=== PATIENT | female | born 1935 | race Caucasian/White ===

== ENCOUNTER 2019-05-15 11:26 | Inpatient (IN) | payer MEDICARE ==
[~2019-05-15] VITALS: Ht 170.2 cm; Wt 78.6 kg
--- NOTE | ~2019-05-15 | OP ---
PATIENT NAME: GERMAN GUIDRY MEDICAL RECORD: [id number] :37 LOCATION:D.M2 D.2121 ADMISSION DATE:05/15/19 SURGEON: JUAN RAMON HAMILTON MD DATE OF OPERATION: 05/18/2019 PROCEDURE: DC cardioversion. INDICATION: Atrial fibrillation. PROCEDURE IN DETAIL: IV conscious sedation was per anesthesia. Continuous heart rate, O2 saturation, blood pressure monitoring all undertaken, all of which remains stable. She received 1 shock at 275 joules restoring sinus rhythm. OVERALL IMPRESSION: Successful DC cardioversion from atrial fibrillation to sinus rhythm. TRANSINT:[id number] Voice Confirmation ID: [id number] DOCUMENT ID: [id number] JUAN RAMON HAMILTON MD CC: [id number] DICTATION DATE: 05/18/19 130 HOME SPECIALIST: 05/18/191957 DIS IN 05/18/19 [facility] [address] [place] [address]
--- NOTE | ~2019-05-15 | HEMODYNAMI ---
PATIENT:GERMAN GUIDRY MEDICAL RECORD: [id number] : 37 LOCATION:[place] [address] ADMISSION DATE: 05/15/19 Generatedon:05/18/201913:09 Patient name: GEMRAN GUIDRY Patient #: [id number] SSN: : 1935 Date of study: 05/18/2019 Page: Of Hemodynamic Procedure Report Patient Data Patient Demographics Procedure consent was obtained First Name: GERMAN Gender: Female Last Name: CHAO : 1935 Patient #: [id number] Age: 84 year(s) Race: Unknown Additional ID: [id number] Contact details [address]: [address] [place] [address] State: [place] City: [place] Zip code: [address] Past Medical History Allergies Allergen Reaction Date Comments Reported Other allergy 05/18/2019 lisinopril Admission Admission Data Admission Date: 05/15/2019 Admission Time: 12:37 Room #: [facility] Procedure Procedure Types Cath Procedure Diagnostic Procedure Cardioversion External Procedure Description Procedure Date Procedure Date: 05/18/2019 Procedure Start Time: 12:59 Procedure End Time: 13:08 Procedure Staff Name Function Satish Mitchell MD Performing Physician Ruth Mcmillan RT Monitor Caitlin Paz RN Nurse Dom Aviles [employer] Additional personnel Pravin Roper [employer] Additional personnel Procedure Data Procedure Complications No complications Procedure Medications Medication Administration Route Dosage 0.9% NaCl I.V. 100 ml/hr Oxygen etCO2 Nasal cannula 2 l/min Refer to Anesthesia Notes for Sedation Medications Hemodynamics Rest Heart Rate: 66 (bpm) Snapshots Pre Cath Intra NCS Post Cath Vital Signs Time Heart Resp SPO2 etCO2 NIBP (mmHg) Rhythm Pain Sedation Rate (ipm) (%) (mmHg) Status Level (bpm) 12:51:46 71 22 96 36.5 123/72(97) A-Fib 0 (11) 10(A) , No pain 12:56:04 58 15 95 41 124/67(104) A-Fib 0 (11) 10(A) , No pain 13:00:20 108 22 96 39.5 123/71(97) A-Fib 0 (11) 5(A) , No pain 13:03:22 68 14 97 23.1 112/67(92) 1 0 (11) 10(A) degree , No AV pain Block 13:07:39 66 14 89 17.1 100/55(75) 1 0 (11) 10(A) degree , No AV pain Block Medications Time Medication Route Dose Verified Delivered Reason Notes Effective ness by by 12:50:51 0.9% NaCl I.V. 100 Satish Tucker used for ml/hr Paula Paz billet examiner 12:50:59 Oxygen etCO2 2 Satish Tucker used for Nasal l/min Paula Paz procedure cannula RN 12:51:04 Refer to Satish Covarrubias for Anesthesia Paula Mitchell MD sedation Notes for Sedation Medications Procedure Log Time Note 12:45:17 Diagnostic Cath Status : Elective 12:45:55 Ruth Mcmillan RT(R) sent for patient. Start room use. 12:45:56 Time tracking: Regular hours (M-F 7:00 - 5:00) 12:46:01 Plan of Care:Hemodynamics will remain stable., Cardiac rhythm will remain stable., Comfort level will be maintained., Respiratory function will remain adequate., Patient/ family verbilizes understanding of procedure., Procedure tolerated without complication., Recovers from procedure without complications.. 12:46:19 Patient received from Med II to CCL 1 Alert and oriented. Tansferred to table in Supine position. 12:46:21 Signed procedure consent form obtained from patient. 12:46:22 Warm blankets applied, and rhonda hugger turned on for patient comfort. 12:46:22 Correct patient and procedure confirmed by team. 12:46:23 ECG and BP/O2 sat monitors applied to patient. 12:50:40 Vital chart was started 12:50:51 0.9% NaCl 100 ml/hr I.V. was administered by Caitlin Paz RN; used for procedure; Verbal order read back and verified. 12:50:59 Oxygen 2 l/min etCO2 Nasal cannula was administered by Caitlin Paz RN; used for procedure; Verbal order read back and verified. 12:51:04 Refer to Anesthesia Notes for Sedation Medications was administered by Satish Mitchell MD; for sedation; Verbal order read back and verified. 12:54:58 Baseline sample Acquired. 12:55:11 Rhythm: atrial flutter 12:55:13 Full Disclosure recording started 12:55:26 H&P Date Dictated: 05/18/2019 Within 30 days and on chart., H&P Addendum completed by physician on day of procedure. (MUST COMPLETE FOR ALL OUTPATIENTS). 12:55:28 Pre-procedure instructions explained to patient. 12:55:31 Family in patients room. 12:55:35 Family in waiting room. 12:55:37 Patient NPO since Midnight. 12:55:54 Patient allergic to Other allergylisinopril 12:55:59 Is the patient allergic to Iodine/contrast media? No. 12:56:01 Is patient on blood thinner?Yes 12:56:08 ACC The patient was administered the following blood thiners within the last 24 hours: Eliquis 12:56:10 Patient diabetic? No. 12:56:16 Snore? Yes 12:56:17 Sleep apnea? Yes 12:56:22 Dentures? No ? 12:56:40 IV patent on arrival in right forearm with 0.9% NaCl at KVO. 12:56:48 Lab results completed and on chart. 12:56:53 Alarms reviewed by R. N. 12:56:53 Sharps counted by scrub and verified by R.N. 12:59:08 Physician arrived 12:59:09 --------ALL STOP TIME OUT------ 12:59:10 Final Timeout: patient, procedure, and site verified with staff and physician. All members of the team are in agreement. 12:59:16 Fire Safety Assessment: A--An alcohol-based skin anteseptic being used preoperatively., C--Open oxygen or nitrous oxide is being used., D--An ESU, laser, or fiber-optic light is being used. 12:59:20 Physical assessment completed. ASA score P 2 - A patient with mild systemic disease as per Satish Mitchell MD. 12:59:27 Sedation plan: TIVA Medication:Propofol 12:59:32 Dom Aviles CRNA present and monitoring patient for TIVA. 12:59:43 Procedure started. 12:59:45 Quick combo pads placed on patients chest and back. 12:59:54 Quick Combo opened to sterile field. 13:00:57 Defibrillator synced and charged to 275 Joules. 13:00:59 Shock delivered. 13:01:54 Patient cardioverted to 1st degree heart block. 13:02:26 Procedure ended.(Physican Out) 13:02:42 Post-procedure physical assessment completed. ASA score P 2 - A patient with mild systemic disease as per Satish Mitchell MD. 13:02:48 Post procedure rhythm: sinus rhythm , 1st degree heart block 13:02:52 Post procedure instruction explained to patient.Patient verbalizes understanding. 13:03:19 Procedure type changed to Cath procedure, Diagnostic procedure, Cardioversion External 13:03:39 Procedure and supply charges have been captured, reviewed, submitted and are correct. 13:03:53 Procedure Complication : No complications 13:08:09 Vital chart was stopped 13:08:12 Operative report dictated upon procedure completion. 13:08:12 See physician's report for complete and final results. 13:08:21 Report given to Med II. 13:08:23 Patient transfered to Med II with Bed. 13:08:25 Procedure ended. 13:08:25 Full Disclosure recording stopped 13:08:27 End room use (Document Last) 13:08:45 End room use (Document Last) 13:09:16 End room use (Document Last) Device Usage Item Manufacture Quantity Catalog Hospital Part Current Minimal Lot# / Name Number Charge Number Stock Stock Lexxi al# Code Quick [employer] 1 [id number] Combo Signature Audit [place] Stage Time Signature Unsigned Intra-Procedure 05/18/2019 Ruth Mcmillan 1:08:46 PM RT(R) Intra-Procedure 05/18/2019 Caitlin Paz 1:09:16 PM RN Intra-Procedure 05/18/2019 Satish Mitchell 1:09:33 PM [id number] [place] [address]
[2019-05-15] MEDS ORDERED: MULTAQ400 MG PO (11:41)
[2019-05-15] MEDS ORDERED: HYZAAR 50-12.51 TAB PO (11:42)
[2019-05-15 12:00] VITALS: BP 134/90
[2019-05-15 12:23] LABS: CALC OSMOLALITY 279 mosm/kg (275-300); CALCIUM 8.4 mg/dL (8.5-10.1); CARBON DIOXIDE 31.2 mmol/L (21.0-32.0); CHLORIDE - SERUM 104 mmol/L (98-107); GLUCOSE 103 mg/dL (74-106); POTASSIUM - SERUM 4.7 mmol/L (3.5-5.1); SODIUM 138 mmol/L (136-145); UREA NITROGEN 23 mg/dL (7-18); eGFR NON AFRICAN AMERICAN 56 mL/min (90-120)
[2019-05-15 12:30] VITALS: BP 127/97
[2019-05-15 12:31] LABS: APTT 28.2 SECONDS (22.8-39.4); INR 1.16 (0.85-1.17); PROTIME 14.3 SECONDS (11.6-15.0)
[2019-05-15 12:40] LABS: ALBUMIN 2.7 g/dL (3.4-5.0); ALKALINE PHOSPHATASE 82 U/L (46-116); ALT (SGPT) 29 U/L (10-68); BILIRUBIN - TOTAL 1.04 mg/dL (0.2-1.3); CKMB 1.7 U/L (0.0-3.6); CREATINE KINASE 73 UL (21-215); MAGNESIUM - SERUM 2.1 mg/dL (1.8-2.4); PROTEIN - SERUM 6.2 g/dL (6.4-8.2)
[2019-05-15 12:41] LABS: TROPONIN-I < 0.017 ng/mL (0.000-0.060)
[2019-05-15 12:44] LABS: BASOPHILS 0.3 % (0-2); EOSINOPHILS 0.9 % (0-7); HEMATOCRIT 39.6 % (36.0-48.0); HEMOGLOBIN 13.1 g/dL (12-16); IMMATURE GRANULOCYTES 0.2 % (0-5); LYMPHOCYTES 11.2 % (15-50); MCH 31.3 pg (26.0-34.0); MCHC 33.1 g/dL (31.0-37.0); MCV 94.5 fL (80.0-100.0); MEAN PLATELET VOLUME 8.5 fL (7.4-10.4); MONOCYTES 13.1 % (2-11); NEUTROPHILS 74.3 % (40-80); PLATELET COUNT 234 10x3/uL (130-400); RBC 4.19 10x6/uL (4.00-5.40); RDW 13.4 % (11.5-14.5); WBC 6.3 10x3/uL (4.8-10.8)
[2019-05-15 13:00] VITALS: BP 123/81
--- NOTE | 2019-05-15 13:15 | MORECARE ---
CASE MANAGEMENT DISCHARGE SUMMARY PATIENT: GERMAN STARK UNIT: [id number] ADM DATE: 05/15/19 AGE: 84 : 36 SEX: F ROOM/BED: D.1856 AUTHOR: NICOLETTE TALLEY PHYSICIAN: REFERRING PHYSICIAN: ÁLVARO BLACKMON MD DATE OF SERVICE: 05/15/19 Discharge Plan Patient Name: GERMAN STARK Facility: [facility]:[place] : 1935 Planned Disposition: Anticipated Discharge Date: Discharge Date: Expected LOS: Initial Reviewer: [email or web address] Initial Review Date: 05/15/2019 Generated: 05/15/19 2:15 pm DCP- Discharge Planning Updated by [email or web address]: Bailey Chacon on 05/15/19 12:[address] CM met with patient to discuss initial discharge planning. Patient is in agreement to proceed with assessment. Verified patient's address and telephone number. Patient is alert/oriented. Stairs/steps: None. PCP: Dr. Aldana, [facility]. Pharmacy: [facility]. Patient states they have been able to obtain all of their prescribed medications. Patient lives with , Celso Stark. HHS: None. DME: None. Patient gives permission to speak with family members/care givers. Emergency contact: Celso Stark (spouse) [phone]. Patient is Independent with all ADL's, medication management. CM discussed the availability of HH, Rehab, DME services. Patient denies the need for additional services at this time and feels safe returning to previous environment. Patient denies being hospitalized within the past 30 days. Patient denies the use of community resources COOKING CHEF. Patient voices no needs at this time. Transportation at time of discharge: , Jus. Patient Name: GERMAN STARK Page [id number] at 1315 All edits/amendments must be made on the electronic document DICTATION DATE: 05/15/19 1314 ALARM MECHANIC: ANAYELI 05/15/19 1314 RPT#: [id number] DC DATE: STATUS: ADM IN [facility] [address] [id number] END OF REPORT
--- NOTE | 2019-05-15 13:21 | MORECARE ---
CASE MANAGEMENT DISCHARGE SUMMARY PATIENT: GERMAN STARK UNIT: [id number] ADM DATE: 05/15/19 AGE: 84 : 36 SEX: F ROOM/BED: D.5335 AUTHOR: MAYANK,DOC PHYSICIAN: REFERRING PHYSICIAN: ÁLVARO BLACKMON MD DATE OF SERVICE: 05/15/19 Discharge Plan Patient Name: GERMAN STARK Facility: [facility]:[place] : 1935 Planned Disposition: Anticipated Discharge Date: Discharge Date: Expected LOS: Initial Reviewer: [email or web address] Initial Review Date: 05/15/2019 Generated: 05/15/19 2:21 pm DCP- Discharge Planning Updated by [email or web address]: Bailey Chacon on 05/15/19 12:[address] CM met with patient to discuss initial discharge planning. Patient is in agreement to proceed with assessment. Verified patient's address and telephone number. Patient is alert/oriented. Stairs/steps: None. PCP: Dr. Jovan [facility]. Pharmacy: [facility]. Patient states they have been able to obtain all of their prescribed medications. Patient lives with , Celso Stark. HHS: None. DME: None. Patient gives permission to speak with family members/care givers. Emergency contact: Celso Stark (spouse) [phone]. Patient is Independent with all ADL's, medication management. CM discussed the availability of HH, Rehab, DME services. Patient denies the need for additional services at this time and feels safe returning to previous environment. Patient denies being hospitalized within the past 30 days. Patient denies the use of community resources TIER OVER. Patient voices no needs at this time. Transportation at time of discharge: , Jus. DCPIA - Discharge Planning Initial Assessment Updated by [email or web address]: Bailey Chacon on 05/15/19 1:20 pm * Is the patient Alert and Oriented? Yes * How many steps to enter\exit or inside your home? None * PCP Dr. Jovan [facility] * [facility]acy [facility] * Preadmission Environment Home with Family * ADLs Independent * Equipment None * List name and contact numbers for known caregivers / representatives who currently or will assist patient after discharge: Celso Stark #[phone] * Verbal permission to speak to the caregivers and representatives has been obtained from the patient. Yes * Community resources currently utilized None * Please name any agencies selected above. NA * Additional services required to return to the preadmission environment? No * Can the patient safely return to the preadmission environment? Yes * Has this patient been hospitalized within the prior 30 days at any hospital? No Last DP export: 05/15/19 12:15 pm Patient Name: GERMAN STARK Page [phone] at 1321 All edits/amendments must be made on the electronic document DICTATION DATE: 05/15/19 1321 PHYSICAL THERAPY ASSISTANT INSTRUCTOR: ANAYELI 05/15/19 1321 RPT#: [id number] DC DATE: STATUS: ADM IN [facility] [address] [place] [address] END OF REPORT
--- NOTE | 2019-05-15 13:43 | NUR ---
PT IV BLEEDING. CHECKED SITE. IV INFUSING WITHOUT S/S OF INFILTRATION. RESTARTED IV. NO S/S OF INFILTRATION.
--- NOTE | 2019-05-15 14:33 | NUR ---
RECIVED FROM ER PER BED. TO ROOM 2121. ADMIT ASSESSMENT PER RN
[2019-05-15 15:54] VITALS: BP 114/70; Ht 170.2 cm; Wt 78.6 kg
--- NOTE | 2019-05-15 16:00 | NUR ---
ASSESSMENTCOMPLETE PT AAOX4 RESP SL SOB NOTED SKIN W/D COLOR WNL TELEMETRY UNCAF RATE 115 PT DENIES ANY PAIN AT THIS TIME NAD NOTED
[2019-05-15 20:00] VITALS: BP 116/59
[2019-05-16] VITALS (7 sets, daily range): BP systolic 111–138; BP diastolic 65–94
[2019-05-16 01:01] LABS: APPEARANCE CLEAR (CLEAR); BILIRUBIN NEGATIVE (NEGATIVE); COLOR YELLOW (YELLOW); GLUCOSE NEGATIVE (NEGATIVE); KETONE NEGATIVE (NEGATIVE); NITRITE POSITIVE (NEGATIVE); PROTEIN TRACE mg/dL (NEGATIVE); SPECIFIC GRAVITY 1.015 (1.005-1.020); UROBILINOGEN NORMAL (NORMAL)
[2019-05-16 01:02] LABS: BACTERIA MODERATE /hpf (NEGATIVE); EPITHELIAL CELLS 0-5 /hpf (0-5); RED CELLS - URINE 0-5 /hpf (0-5); WHITE CELLS - URINE 0-5 /hpf (NEGATIVE)
[2019-05-16 07:21] LABS: BASOPHILS 0.3 % (0-2); EOSINOPHILS 2.2 % (0-7); HEMATOCRIT 38.2 % (36.0-48.0); HEMOGLOBIN 12.5 g/dL (12-16); IMMATURE GRANULOCYTES 0.2 % (0-5); LYMPHOCYTES 17.7 % (15-50); MCH 30.8 pg (26.0-34.0); MCHC 32.7 g/dL (31.0-37.0); MCV 94.1 fL (80.0-100.0); MEAN PLATELET VOLUME 8.4 fL (7.4-10.4); MONOCYTES 13.1 % (2-11); NEUTROPHILS 66.5 % (40-80); PLATELET COUNT 231 10x3/uL (130-400); RBC 4.06 10x6/uL (4.00-5.40); RDW 13.5 % (11.5-14.5); WBC 5.9 10x3/uL (4.8-10.8)
--- NOTE | 2019-05-16 07:32 | NUR ---
REPORT RECEIVED. WILL CONTINUE WITH POC. PT CURRENTLY LYING SEMI FOWLERS. CALL LIGHT W/I REACH. PT IS AAO AND UP AD BRITTON. RR EVEN AND UNLABORED ON 2L 02. CARDIZEM INFUSING @10ML/HR VIA L.AC PIV. R.WRIST PIV SALINE LOCKED. NO S/S OF DISTRESS NOTED. PT PLEASANT AND DENIES ANY NEEDS THIS AM. WILL CTM.
[2019-05-16 07:44] LABS: ALBUMIN 2.5 g/dL (3.4-5.0); ANION GAP 12.2 mmol/L (8-16); BILIRUBIN - TOTAL 0.82 mg/dL (0.2-1.3); CARBON DIOXIDE 30.4 mmol/L (21.0-32.0); CREATININE - SERUM 1.1 mg/dL (0.6-1.3); MAGNESIUM - SERUM 1.8 mg/dL (1.8-2.4); PHOSPHOROUS 3.4 mg/dL (2.5-4.9); POTASSIUM - SERUM 3.6 mmol/L (3.5-5.1)
--- NOTE | 2019-05-16 14:58 | NUR ---
I have reviewed this patient and I concur with the Shift Assessment completed by the Licensed Practical Nurse today this shift.
--- NOTE | 2019-05-16 17:15 | NUR ---
CARDIZEM THAT WAS INFUSING TO LEFT AC PIV INFILTRATED. REMOVED PIV WITH CATHETER TIP FULLY INTACT. MOVED CARDIZEM DRIP TO THE RIGHT HAND PIV. NO S/S OF INFILTRATION PRESENT. WILL CTM. CARDIZEM @10ML/HR
--- NOTE | 2019-05-16 19:50 | NUR ---
PT UP TO SHOWER
--- NOTE | 2019-05-16 21:15 | NUR ---
IV TO RIGHT WRIST RED AND SWOLLEN. IV RESITED TO RIGHT UPPER FOREARM, 22 GUAGE, PT TOLERATED WELL. HS MEDS GIVEN WITH FRESH ICE WATER.
[2019-05-17 05:35] LABS: BASOPHILS 0.1 % (0-2); EOSINOPHILS 1.1 % (0-7); HEMATOCRIT 39.3 % (36.0-48.0); HEMOGLOBIN 12.9 g/dL (12-16); IMMATURE GRANULOCYTES 0.1 % (0-5); LYMPHOCYTES 16.8 % (15-50); MCH 30.9 pg (26.0-34.0); MCHC 32.8 g/dL (31.0-37.0); MEAN PLATELET VOLUME 8.6 fL (7.4-10.4); MONOCYTES 10.7 % (2-11); NEUTROPHILS 71.2 % (40-80); PLATELET COUNT 253 10x3/uL (130-400); RBC 4.18 10x6/uL (4.00-5.40); RDW 13.4 % (11.5-14.5)
[2019-05-17 06:02] LABS: WBC 8.1 10x3/uL (4.8-10.8)
[2019-05-17 06:14] LABS: ANION GAP 11.6 mmol/L (8-16); CALCIUM 8.2 mg/dL (8.5-10.1); CARBON DIOXIDE 30.3 mmol/L (21.0-32.0); PHOSPHOROUS 3.1 mg/dL (2.5-4.9); POTASSIUM - SERUM 3.9 mmol/L (3.5-5.1)
--- NOTE | 2019-05-17 06:20 | NUR ---
I have reviewed this patient and I concur with the Shift Assessment completed by the Licensed Practical Nurse today this shift.
--- NOTE | 2019-05-17 07:20 | NUR ---
ASSESSMENT DONE. DENIES NEEDS
[2019-05-17 10:55] VITALS: BP 110/86
--- NOTE | 2019-05-17 14:04 | EC ---
PATIENT:GERMAN GUIDRY DATE OF SERVICE: 05/15/19 SEX: F MEDICAL RECORD: [id number] DATE OF : 37 LOCATION:D.M2 D.212 AGE OF PATIENT: 84 ADMISSION DATE: 05/15/19 REFERRING PHYSICIAN: INTERPRETING PHYSICIAN: JUAN RAMON MITCHELL MD ECHOCARDIOGRAM REPORT ECHO CHARGES 4 ECHO COMPLETE Date: 05/16/19 CLINICAL DIAGNOSIS: SOB/ATRIAL FIB ECHOCARDIOGRAPHIC MEASUREMENTS (adult normal given) AC root (d.<3.7cm) 3.5 cm LV Septum d (<1.2 cm> 1.2 cm Valve Excursion 2.1 cm LV Septum (systole) 1.5 cm Left Atria (s.<4.0cm> 4.2 cm LVPW d(<1.2cm) 1.4 cm RV (d.<2.3cm) 4.8 cm LVPW (sytole) 1.6 cm LV diastole(<5.6CM) 5.1 cm MV E-F(>70mm/sec) cm LV systole 3.7 cm LVOT Diameter 2.0 cm MV exc.(>10mm) 1.4 cm Est.ejection fraction (50-75%) % DOPPLER: LVIT cm/sec A 96.0 cm/sec E cm/sec LA cm/sec RVSP 37 mmHg LVOT 89 cm/sec AOP1/2T m/s Asc. Ao 136 cm/sec RVOT 71 cm/sec RA cm/sec PA 108 cm/sec AV Gradient Peak 7.42 mmHg AV Mean 4.56 mmHg AV Area 1.5 cm MV Gradient Peak 4.97 mmHg MV Mean 2.49 mmHg MV Area cm COMMENTS: Tobacco Classer: Anali GRAY Embroidery Operator: 1 Dr. Mitchell TAPE# PACS Pericardial Effusion Y DATE OF SERVICE: PROCEDURE: 1. Left ventricular chamber size is within normal limits. Left ventricular systolic function is normal. Overall ejection fraction estimated at 55%. 2. Left atrium is enlarged at 4.2 cm. Right atrium and right ventricular chamber sizes are moderately dilated. 3. Valvular structures have normal structure and motion. 4. Doppler interrogation reveals [id number] mitral regurgitation, mild to moderate tricuspid regurgitation, no other valvular insufficiency or stenosis. ECHOCARDIOGRAM REPORT [id number] GERMAN GUIDRY Pulmonary systolic pressure estimated at 37 mmHg. 5. Pericardial effusion is present, small not hemodynamically significant. No evidence of left ventricular thrombus. TRANSINT:[id number] Voice Confirmation ID: [id number] DOCUMENT ID: [id number] JUAN RAMON MITCHELL MD at 1404 CC: [id number] DICTATION DATE: 05/16/19 1624 GLASS NOVELTY MAKER: 05/17/19 0233 ADM IN [id number] [place] [address]
--- NOTE | 2019-05-17 14:04 | CN ---
PATIENT NAME:GERMAN STARK MEDICAL RECORD: [id number] : 37 LOCATION:D. D.2121 ADMIT DATE: 05/15/19 ACCOUNT: [id number] CONSULTING PHYSICIAN: JUAN RAMON HAMILTON MD REFERRING PHYSICIAN: ÁLVARO BLACKMON MD DATE OF CONSULTATION: 05/15/2019 DIAGNOSES: 1. Atrial fibrillation with rapid ventricular response. 2. Pneumonia. 3. Shortness of breath. 4. Hypertension. 5. Angina. 6. Lower extremity edema. HISTORY OF PRESENT ILLNESS: Mrs. Stark presents with shortness of breath for the lower extremity edema and chest discomfort that has been worsening for the past week. She does have a history of atrial fibrillation for which she is on Multaq. She was previously in sinus rhythm now in atrial fibrillation, heart rates in the 30s. Chest x-ray is compatible with pneumonia, right lower lobe, as well as pulmonary edema. PHYSICAL EXAMINATION: CONSTITUTIONAL/GENERAL APPEARANCE: Well nourished, well developed, appears stated age. EYES: Lids and conjunctivae noninjected. No discharge. No pallor. ENT: Lips within normal limit. No cyanosis. No pallor. NECK: Carotid arteries, bilateral normal upstroke. No bruits. No thrills. No jugular venous pressure or distention. CERVICAL LYMPH NODES: Nontender. Nonenlarged. THYROID: Not enlarged. No nodules. CARDIOVASCULAR: Precordial exam, nondisplaced. No heaves or pericardial thrills. Rate and rhythm, regular. Heart sounds, normal S1, normal S2. No S3, no gallop, no rub. Systolic murmur, not heard. Diastolic murmur, not heard. RESPIRATORY: Respiratory effort, unlabored. Normal curvature. No thoracic deformity. No chest wall tenderness. Percussion, resonant. Auscultation, clear. No wheezes, no rales, no rhonchi. ABDOMEN: Soft, nondistended, nontender. No abdominal pain, no vomiting and normal appetite. MUSCULOSKELETAL: No joint tenderness, normal gait, normal tone. SKIN: Warm and dry. OVERALL IMPRESSION: 1. Atrial fibrillation. At this time, we will continue her Multaq. Start her on anticoagulation and rate control with Cardizem. 2. Chest pain compatible with angina. We will get serial enzymes. EKG is with no acute ST-T abnormalities. 3. Pneumonia. This will be treated per medicine with IV antibiotics. TRANSINT:[id number] Voice Confirmation ID: [id number] DOCUMENT ID: [id number] CONSULT REPORT [id number] GERMAN STARK JEFFREY MD at 1404 CC: [id number] DICTATION DATE: 05/15/19 1213 CAKE STRIPPER: 05/15/19 1723 ADM IN [id number] [place] [address]
[2019-05-17 14:09] VITALS: BP 96/58
--- NOTE | 2019-05-17 14:40 | NUR ---
I have reviewed this patient and I concur with the Shift Assessment completed by the Licensed Practical Nurse today this shift.
[2019-05-17 17:24] VITALS: BP 117/61
[2019-05-17 20:30] VITALS: BP 119/44
[2019-05-18] VITALS: BP 117/61
[2019-05-18 04:30] VITALS: BP 130/69
--- NOTE | 2019-05-18 05:11 | NUR ---
I have reviewed this patient and I concur with the Shift Assessment completed by the Licensed Practical Nurse today this shift.
[2019-05-18 06:01] LABS: BASOPHILS 0 % (0-2); EOSINOPHILS 0.5 % (0-7); HEMOGLOBIN 12.1 g/dL (12-16); IMMATURE GRANULOCYTES 0.2 % (0-5); LYMPHOCYTES 16.4 % (15-50); MCH 30.7 pg (26.0-34.0); MCHC 32.7 g/dL (31.0-37.0); MCV 93.9 fL (80.0-100.0); MEAN PLATELET VOLUME 8.5 fL (7.4-10.4); MONOCYTES 9.5 % (2-11); NEUTROPHILS 73.4 % (40-80); PLATELET COUNT 248 10x3/uL (130-400); RBC 3.94 10x6/uL (4.00-5.40); WBC 6.6 10x3/uL (4.8-10.8)
[2019-05-18 06:26] LABS: ANION GAP 7.7 mmol/L (8-16); CALCIUM 7.9 mg/dL (8.5-10.1); CARBON DIOXIDE 35.1 mmol/L (21.0-32.0); CREATININE - SERUM 1.1 mg/dL (0.6-1.3); MAGNESIUM - SERUM 1.9 mg/dL (1.8-2.4); PHOSPHOROUS 3.6 mg/dL (2.5-4.9); POTASSIUM - SERUM 3.8 mmol/L (3.5-5.1)
--- NOTE | 2019-05-18 08:04 | NUR ---
ASSESSMENT DONE. DENIES NEEDS
[2019-05-18 08:48] VITALS: BP 120/69
--- NOTE | 2019-05-18 09:19 | NUR ---
I have reviewed this patient and I concur with the Shift Assessment completed by the Licensed Practical Nurse today this shift.
[2019-05-18 12:26] VITALS: BP 130/80
[2019-05-18] MEDS ORDERED: METOPROLOL TART50 MG PO (15:49)
[2019-05-18] MEDS ORDERED: ELIQUIS5 MG PO (15:51)
--- NOTE | 2019-05-18 16:33 | NUR ---
DC GIVEN TO PT
--- NOTE | 2019-05-18 17:16 | NUR ---
DC HOME PER PERSONAL CAR
--- NOTE | 2019-05-18 17:24 | MORECARE ---
CASE MANAGEMENT DISCHARGE SUMMARY PATIENT: GERMAN STARK UNIT: [id number] ADM DATE: 05/15/19 AGE: 84 : 36 SEX: F ROOM/BED: D.9680 AUTHOR: MAYANK,DOC PHYSICIAN: REFERRING PHYSICIAN: ÁLVARO BLACKMON MD DATE OF SERVICE: 05/18/19 Discharge Plan Patient Name: GERMAN STARK Facility: [facility]:[place] : 1935 Planned Disposition: Home Anticipated Discharge Date: 05/18/19 Discharge Date: 05/18/2019 Expected LOS: 3 Initial Reviewer: [email or web address] Initial Review Date: 05/15/2019 Generated: 05/18/19 6:24 pm Comments DCP- Discharge Planning Updated by [email or web address]: Raghav Palomo on 05/18/19 4:[address] Patient Name: GERMAN STARK Encounter No: [id number] : 1935 Primary Insurance: [facility] [employer] Anticipated DC Date: 05-18-2019 Planned Disposition: Home DCP follow-up note: CM MET WITH PT IN ROOM TO DISCUSS DISCHARGE NEEDS AND PLANNING. CM DISCUSSED AVAILABILITY OF HOME HEALTH, REHAB SERVICES AND MEDICAL EQUIPMENT. PT DENIES DISCHARGE NEEDS. SPOUSE TO TRANSPORT HOME AT DISCHARGE. IMPORTANT MESSAGE FROM MEDICARE PROVIDED AND EXPLAINED. HARMAN Shrestha DCP- Discharge Planning Updated by [email or web address]: Bailey Chacon on 05/15/19 12:[address] CM met with patient to discuss initial discharge planning. Patient is in agreement to proceed with assessment. Verified patient's address and telephone number. Patient is alert/oriented. Stairs/steps: None. PCP: Dr. Aldana, [facility]. [facility] Patient states they have been able to obtain all of their prescribed medications. Patient lives with , Celso Stark. HHS: None. DME: None. Patient gives permission to speak with family members/care givers. Emergency contact: Celso Stark (spouse) [phone]. Patient is Independent with all ADL's, medication management. CM discussed the availability of HH, Rehab, DME services. Patient denies the need for additional services at this time and feels safe returning to previous environment. Patient denies being hospitalized within the past 30 days. Patient denies the use of community resources [employer]. Patient voices no needs at this time. Transportation at time of discharge: , Jus. DCPIA - Discharge Planning Initial Assessment Updated by [email or web address]: Bailey Chacon on 05/15/19 1:20 pm * Is the patient Alert and Oriented? Yes * How many steps to enter\exit or inside your home? None * PCP Dr. Jovan [facility] * [facility]acy [facility] * Preadmission Environment Home with Family * ADLs Independent * Equipment None * List name and contact numbers for known caregivers / representatives who currently or will assist patient after discharge: Celso Stark #[phone] * Verbal permission to speak to the caregivers and representatives has been obtained from the patient. Yes * Community resources currently utilized None * Please name any agencies selected above. NA * Additional services required to return to the preadmission environment? No * Can the patient safely return to the preadmission environment? Yes * Has this patient been hospitalized within the prior 30 days at any hospital? No Coverage Notice Reviewer: [id number] Yonathan Palomo Notice Issued Date-Time: 05/18/2019 16:20 Notice Type: IM Discharge Notice Notice Delivered To: Patient Relationship to Patient: Flotation Tank Operator Name: Delivery Method: HAND - Hand Delivered Nydia Days: Prior Verbal Notification: Recipient Understood Notice: Yes Recipient Signature: Yes Med Rec Note Co-signed by Attending: Coverage Notice Comment: Last DP export: 05/15/19 12:21 pm Patient Name: GERMAN STARK Page 31513 at 1724 All edits/amendments must be made on the electronic document DICTATION DATE: 05/18/191723 PRODUCTION SUPPORT SUPERVISOR: ANAYELI 05/18/191723 RPT#: [id number] DC DATE:05/18/19 STATUS: DIS IN [facility] [address] [place] [address] END OF REPORT
== END 2019-05-18 17:16 | disposition home or self-care (01) | DRG 291 ==
LOC: D.ER 11:26 → D.M2 12:37 → D.SDCHOLD 05-17 14:50 → D.M2 05-18 17:16
PROVIDERS: Family Medicine; ADMIT Family Medicine; ATTEND Family Medicine
DX: I11.0 Hypertensive heart disease with heart failure (principal); J18.9 Pneumonia, unspecified organism; I50.21 Acute systolic (congestive) heart failure; I48.20 Chronic atrial fibrillation, unspecified; I08.1 Rheumatic disorders of both mitral and tricuspid valves

== ENCOUNTER 2019-06-03 20:33 | Inpatient (IN) | payer MEDICARE ==
[~2019-06-03] VITALS: Ht 170.2 cm; Wt 75.3 kg
--- NOTE | ~2019-06-03 | HEMODYNAMI ---
PATIENT:GERMAN GUIDRY MEDICAL RECORD: [id number] : 37 LOCATION[facility] [id number] ADMISSION DATE: 06/03/19 Generatedon:06/05/201912:27 Patient name: GERMAN GUIDRY Patient #: [id number] SSN: [id number] : 1935 Date of study: 06/05/2019 Page: Of Hemodynamic Procedure Report Patient Data Patient Demographics Procedure consent was obtained First Name: GERMAN Gender: Female Last Name: CHAO : 1935 Patient #: [id number] Age: 84 year(s) Race: Unknown SSN: [id number] Additional ID: [id number] Contact details [address]: [address] [place] [address] State: [place] City: [place] Zip code: [address] Past Medical History Allergies Allergen Reaction Date Comments Reported Other allergy 05/18/2019 lisinopril Other allergy 06/05/2019 LISINOPRIL Admission Admission Data Admission Date: 06/03/2019 Admission Time: 23:12 Room #: D.2129 Lab Results Lab Result Date: 06/05/2019 Lab Result Time: 0:00 Biochemistry Name Units Result Min Max BUN mg/dl 25 --(----)-* 7 18 Creatinine mg/dl 1 --(--*-)-- 0.6 1.3 eGFR ml/min 56 *-(----)-- 90 120 NONAFRICAN CBC Name Units Result Min Max Hematocrit % 40 -*(----)-- 42 54 Hemoglobin g/dl 13.1 -*(----)-- 13.5 17.5 Procedure Procedure Types Cath Procedure Diagnostic Procedure [facility] w/Coronaries FFR/IVUS FFR Initial Cardioversion External Sedation Charges Moderate Sedation up to 15 minutes PCI Procedure Coronary Stent Coronary Stent Initial Hemochron ACT Test Procedure Description Procedure Date Procedure Date: 06/05/2019 Procedure Start Time: 12:02 Procedure End Time: 12:23 Procedure Staff Name Function Satish Mitchell MD Performing Physician Elba Olivares RT Monitor DeniseAnago RT Scrub Yuniel Amezquita RN Nurse Procedure Data Cath Procedure Fluoroscopy Diagnostic fluoroscopy Total fluoroscopy Time: 2.7 time: 2.7 min min Diagnostic fluoroscopy Total fluoroscopy dose: 462 dose: 462 mGy mGy Contrast Material Contrast Material Type Amount (ml) Isovue 370 50 Entry Location Entry Primary Successful Side Size Upsize Upsize Entry Closure Mosquera ccessful Closure Location (Fr) 1 (Fr) 2 (Fr) Remarks Device Remarks Radial Right 6 Fr Mechanical artery Short Compression Estimated blood loss: 10 ml Diagnostic catheters Device Type Used For End Catheter Placement DIAGNOSTIC [place] 110cm 5 Procedure Fr catheter ([id number]) Procedure Complications No complications Procedure Medications Medication Administration Route Dosage 0.9% NaCl I.V. 100 ml/hr Oxygen etCO2 Nasal cannula 4 l/min Heparin Flush Bag added to field 2 bags (1000units/500ml NS) Lidocaine 2% added to field 20 Radial Cocktail added to field 1 syringe (Verapamil 2mg/Nitro 400mcg/Heparin 1500units) Versed I.V. 1 mg Fentanyl 50 mcg Versed I.V. 1 mg Radial Cocktail I.A. 1 syringe (Verapamil 2mg/Nitro 400mcg/Heparin 1500units) Heparin Bolus I.V. 4000 units Integrilin (Bolus I.V. 6.8 ml 2mg/ml) Refer to Anesthesia Notes for Sedation Medications Integrilin (Bolus wasted 3.2 ml 2mg/ml) Plavix P.O. 600 mg Hemodynamics Rest Pre Cath Intra NCS Post Cath Vital Signs Time Heart Resp SPO2 etCO2 NIBP (mmHg) Rhythm Pain Sedation Rate (ipm) (%) (mmHg) Status Level (bpm) 11:57:56 92 16 100 29.2 138/99(117) NSR 0 (11) 10(A) , No pain 12:02:08 74 17 97 29.2 138/102(119) NSR 0 (11) 10(A) , No pain 12:06:18 94 18 92 0 77/54(68) NSR 0 (11) 9(A) , No pain 12:10:20 108 17 92 0 86/58(72) NSR 0 (11) 9(A) , No pain 12:14:21 80 10 90 8.9 104/70(85) NSR 0 (11) 9(A) , No pain 12:18:33 45 12 91 10.4 94/59(70) NSR 0 (11) 8(A) , No pain 12:22:43 48 17 29.2 85/45(62) NSR 0 (11) 9(A) , No pain Medications Time Medication Route Dose Verified Delivered Reason Not es Effectiveness by by 11:58:10 0.9% NaCl I.V. 100 Yuniel Yuniel Per physician ml/hr Bia Amezquita RN RN 11:58:29 Oxygen etCO2 4 l/min Yuniel Yuniel for low 02 sats Nasal Lorigan Lordiane cannula RN RN 12:00:24 Heparin Flush added 2 bags Yuniel Yuniel used for Bag to Lordiane Amezquita procedure (1000units/500ml field RN RN NS) 12:00:34 Lidocaine 2% added 20ml Yuniel Yuniel for local to vial Lorigan Lorigan anesthetic field RN RN 12:00:46 Radial Cocktail added 1 Yuniel Yuniel used for (Verapamil to syringe Lorigan Lordiane procedure 2mg/Nitro field RN RN 400mcg/Heparin 1500units) 12:01:07 Versed I.V. 1 mg Yuniel Yuniel for sedation Bia Amezquita RN RN 12:01:14 Fentanyl 50 mcg Yuniel Yuniel for sedation Bia Amezquita RN RN 12:02:29 Versed I.V. 1 mg Yuniel Yuniel for sedation Bia Amezquita RN RN 12:02:37 Radial Cocktail I.A. 1 Yuniel Satish for (Verapamil syringe Bia Mitchell MD vasodilation 2mg/Nitro RN 400mcg/Heparin 1500units) 12:09:05 Integrilin I.V. 6.8 ml Yuniel Yuniel for (Bolus 2mg/ml) Bia Amezquita antiplatelet RN RN therapy 12:09:50 Heparin Bolus I.V. 4000 Yuniel Yuniel for units Bia Amezquita anticoagulation RN RN 12:15:05 Refer to Yuniel Yuniel for sedation Anesthesia Notes Lordiane Amezquita for Sedation RN RN Medications 12:22:38 Integrilin wasted 3.2 ml Yuniel Yuniel to sharp's (Bolus 2mg/ml) Bia Amezquita RN RN 12:22:54 Plavix P.O. 600 mg Yuniel Yuniel for Bia Amezquita antiplatelet RN RN therapy Procedure Log Time Note 11:25:41 Informed consent obtained and on chart 11:26:15 Procedure Status Urgent Heart Cath (IP). 11:26:17 Time tracking: Regular hours (M-F 7:00 - 5:00) 11:26:20 Plan of Care:Hemodynamics will remain stable., Cardiac rhythm will remain stable., Comfort level will be maintained., Respiratory function will remain adequate., Patient/ family verbilizes understanding of procedure., Procedure tolerated without complication., Recovers from procedure without complications.. 11:26:31 H&P Date Dictated: 06/04/2019 Within 30 days and on chart.. 11::47 Patient allergic to Other allergyLISINOPRIL 11::32 Lab Result : BUN 25 mg/dl ::32 Lab Result : Creatinine 1 mg/dl 11::32 Lab Result : eGFR NONAFRICAN 56 ml/min 11::32 Lab Result : Hemoglobin 13.1 g/dl 11::32 Lab Result : Hematocrit 40 % 11:29:14 Risk of Mortality: .5 11:29:16 Risk of blood transfusion: .2 11:29:19 Risk of BOBBY: 1.3 11:34:21 Yuniel Amezquita RN sent for patient. Start room use. 11:45:43 Patient received from Med II to CCL 1 Alert and oriented. Tansferred to table in Supine position. 11:45:45 Warm blankets applied, and rhonda hugger turned on for patient comfort. 11:45:46 Correct patient and procedure confirmed by team. 11:45:48 ECG and BP/O2 sat monitors applied to patient. 11:45:52 Pre-procedure instructions explained to patient. 11:45:52 Pre-op teaching completed and patient verbalized understanding. 11:45:55 Patient NPO since Midnight. 11:56:46 Vital chart was started 11:57:00 Family in patients room. 11:57:09 Is the patient allergic to Iodine/contrast media? No. 11:57:10 Was the patient premedicated? Yes 11:57:12 Is patient on blood thinner?Yes 11:57:18 ACC The patient was administered the following blood thiners within the last 24 hours: Eliquis 11:57:20 Patient diabetic? No. 11:57:22 If diabetic: On Metformin? N/A 11:57:24 Patient not . Patient is over age 55. 11:57:25 ----Pre-sedation anethsthesia assessment.---- 11:57:30 Previous problem with sedation/anesthesia? No ? 11:57:32 Snore? Yes 11:57:34 Sleep apnea? Yes 11:57:36 Deviated septum? No 11:57:37 Opens mouth fully? Yes 11:57:38 Sticks out tongue? Yes 11:57:40 Airway obstruction? No ? 11:57:42 Dentures? No ? 11:57:48 Pre procedure: right dorsailis pedis pulse 2+ Normal; easily identifiable; not easily obliterated 11:57:55 Patient pain scale 0/10 ?. 11:57:58 Modified Partha's test Ulnar < 7 seconds 11:58:06 IV patent on arrival in right antecubital with 0.9% NaCl at O. 11:58:10 0.9% NaCl 100 ml/hr I.V. was administered by Yuniel Amezquita RN; Per physician; Verbal order read back and verified. 11:58:10 Lab results completed and on chart. 11:58:15 Stress Test: no; N/A ? 11:58:21 Right Radial & Right Groin area was prepped with chlora-prep and draped in sterile fashion 11:58:22 Alarms reviewed by R. N. 11:58:23 Sharps counted by scrub and verified by R.N. 11:58:26 --------ALL STOP TIME OUT------ 11:58:27 Final Timeout: patient, procedure, and site verified with staff and physician. All members of the team are in agreement. 11:58:29 Oxygen 4 l/min etCO2 Nasal cannula was administered by Yuniel Amezquita RN; for low 02 sats; Verbal order read back and verified. 11:58:29 Right Radial & Right Groin site verified by team. 11:58:33 Fire Safety Assessment: A--An alcohol-based skin anteseptic being used preoperatively., C--Open oxygen or nitrous oxide is being used., D--An ESU, laser, or fiber-optic light is being used. 11:58:36 Physical assessment completed. ASA score P 2 - A patient with mild systemic disease as per Satish Mitchell MD. 11:58:43 3a) 45-59 Moderately reduced kidney function. 11:58:55 Maximum allowable contrast dose (3.7 X eGFR X 0.75)155 ml. 11:59:01 Sedation plan: IV Moderate Sedation Medication:Versed, Fentanyl 11:59:05 Procedure started. 11:59:05 Full Disclosure recording started 11:59:07 Use device set Radial Dx or PCI 11:59:09 ACIST Syringe (60421) opened to sterile field. 11:59:09 Medline Cath Pack ([id number]) opened to sterile field. 11:59:10 Bag Decanter (2002S) opened to sterile field. 11:59:11 ACIST Hand Control (64979) opened to sterile field. 11:59:12 ACIST Manifold (99396) opened to sterile field. 11:59:13 Tegaderm 4 x 4 (1626W) opened to sterile field. 11:59:14 MBrace Wrist Support ([id number]) opened to sterile field. 11:59:16 SHEATH 6FR RAIN (5975437) opened to sterile field. 12:00:24 Heparin Flush Bag (1000units/500ml NS) 2 bags added to field was administered by Yuniel Amezquita RN; used for procedure; Verbal order read back and verified. 12:00:34 Lidocaine 2% 20ml vial added to field was administered by Yuniel Amezquita RN; for local anesthetic; Verbal order read back and verified. 12:00:46 Radial Cocktail (Verapamil 2mg/Nitro 400mcg/Heparin 1500units) 1 syringe added to field was administered by Yuniel Amezquita RN; used for procedure; Verbal order read back and verified. 12:01:07 Versed 1 mg I.V. was administered by Yuniel Amezquita RN; for sedation; Verbal order read back and verified. 12:01:14 Fentanyl 50 mcg was administered by Yuniel Amezquita RN; for sedation; Verbal order read back and verified. 12:01:49 YRIS Guide Wire (209-562) opened to sterile field. 12:02:00 Local anesthetic to right radial artery with Lidocaine 2% by Satish Mitchell MD.INITIAL ACCESS ONLY 12:02:09 A 6 Fr Short sheath was inserted into the Right Radial artery 12:02:29 Versed 1 mg I.V. was administered by Yuniel Amezquita RN; for sedation; Verbal order read back and verified. 12:02:37 Radial Cocktail (Verapamil 2mg/Nitro 400mcg/Heparin 1500units) 1 syringe I.A. was administered by Satish Mitchell MD; for vasodilation; Verbal order read back and verified. 12:02:57 A DIAGNOSTIC [place] 110cm 5 Fr catheter (355560) was advanced over the wire and used for Procedure. 12:04:20 LCA angiography performed. 12:05:02 RCA angiography performed. 12:06:18 Catheter removed. 12:06:22 Proceeding to intervention. 12:06:37 [employer] Plus pressure wire (76297V) opened to sterile field. 12:06:47 INFLATOR Merit BasixCompak (CY2773) opened to sterile field. 12:07:14 GUIDE 6FR XBLAD 4.0 catheter ([id number]) opened to sterile field. 12:07:23 6 Fr XBLAD 4 guide catheter was inserted over the wire 12:07:29 FFR/IFR wire advanced. 12:08:28 Wire advanced across lesion. 12:08:33 mLAD lesion measured at .89 with IFR 12:09:05 Integrilin (Bolus 2mg/ml) 6.8 ml I.V. was administered by Yuniel Amezquita RN; for antiplatelet therapy; Verbal order read back and verified. 12:09:50 Heparin Bolus 4000 units I.V. was administered by Yuniel Amezquita RN; for anticoagulation; Verbal order read back and verified. 12:10:38 Place stent Inflation Number: 1 A INTEGRITY RX 3.0 x 22 stent ([id number]) was prepped and advanced across the Mid LAD . The stent was deployed at 17 CHA for 0:00 (min:sec) . 12:11:19 Stent catheter was removed intact over wire. 12:11:20 Wire removed. 12:11:20 Guide catheter removed. 12:11:32 Sheath removed intact; hemostasis achieved with Mechanical Compression to the Right Radial artery. 12:11:36 ZEPHYR REGULAR TR BAND (433951) opened to sterile field. 12:12:21 Procedure ended.(Physican Out) 12:12:29 Fluoroscopy time 02.70 minutes. 12:12:34 Fluoroscopy dose: 462 mGy 12:12:34 Flurop Dose total: 462 12:12:41 Dose Area Product 13537 mGy/cm. 12:12:50 Contrast amount:Isovue 370 50ml. 12:12:52 Maximum allowable dose exceeded? No. 12:12:53 Sharps counted by scrub and verified by RLucretiaNLucretia 12:13:06 ------Cardioversion------ 12:13:07 Quick combo pads placed on patients chest and back. 12:14:41 [facility] Findings: MVD- PCI performed (see procedure note) 12:14:46 Estimated blood loss: 10 ml 12:15:05 Refer to Anesthesia Notes for Sedation Medications was administered by Yuniel Amezquita RN; for sedation; Verbal order read back and verified. 12:17:49 Defibrillator synced and charged to 275 Joules. 12:17:51 Shock delivered. 12:18:34 Patient cardioverted to sinus bradycardia. 12:18:47 Post procedure instruction explained to patient.Patient verbalizes understanding. 12:18:48 Patient needs reinforcement of post procedure teaching. 12:18:54 [place] band inflated with 10cc of air. 12:19:06 ACT drawn and resulted at 280 seconds. (normal therapeutic range 180-240 seconds). 12:19:34 Post Procedure Pulses reassessed and unchanged 12:19:37 Post procedure: right dorsailis pedis pulse 2+ Normal; easily identifiable; not easily obliterated. 12:19:41 Post-procedure physical assessment completed. ASA score P 2 - A patient with mild systemic disease as per Satish Mitchell MD. 12:20:13 Post procedure rhythm: sinus bradycardia 12:20:28 Procedure Complication : No complications 12:22:10 Procedure type changed to Cath procedure, Diagnostic procedure, LHC, LHC w/Coronaries, FFR/IVUS, FFR Initial, Cardioversion External, Sedation Charges, Moderate Sedation up to 15 minutes, PCI procedure, Coronary Stent, Coronary Stent Initial, Hemochron ACT Test 12:22:38 Integrilin (Bolus 2mg/ml) 3.2 ml wasted was administered by Yuniel Amezquita RN; to sharp's; Verbal order read back and verified. 12:22:54 Plavix 600 mg P.O. was administered by Yuniel Amezquita RN; for antiplatelet therapy; Verbal order read back and verified. 12:23:28 Procedure and supply charges have been captured, reviewed, submitted and are correct. 12:23:30 Vital chart was stopped 12:23:31 Operative report dictated upon procedure completion. 12:23:32 See physician's report for complete and final results. 12:23:35 Report given to [facility] II. 12:23:38 Patient transfered to [facility] with Bed. 12:23:40 Procedure ended. 12:23:40 Full Disclosure recording stopped 12:23:54 End room use (Document Last) Intervention Summary Intervention Notes Time ActionType Lesion and Equipment Action# Pressure Duration Attributes Used 12:10:38 Place stent Mid LAD INTEGRITY RX 1 17 00:00 3.0 x 22 stent ([id number]) Device Usage Item Name Manufacture Quantity Catalog Hospital Part Current Min imal Lot# / Number Charge Number Stock Stock Serial# Code ACIST Acist 1 51136 030217 316841 439231 20 Syringe Medical (56175) Systems Inc Medline Cath Medline 1 [id number] 476262 34302 819085 5 Pack ([id number]) Bag Decanter Microtek 1 2002S 234619 34135 471748 5 (2002S) Medical Inc. ACIST Hand Acist 1 96504 295964 343604 604511 5 Control Medical (03543) Systems Inc ACIST Acist 1 26779 655248 937349 089204 5 Manifold Medical (83358) Systems Inc Tegaderm 4 x 3M 1 1626W 055481 054249 338651 5 4 (1626W) MBrace Wrist Advanced 1 140-0250-00 153335 95401 690564 5 Support Vascular (025319777) Dynamics SHEATH 6FR Cardinal 1 4645761 922513 3254933 064005 5 [facility] (5225644) EMERALD Cardinal 1 502-455 852229 887988 237707 5 Guide Wire Health (549-438) DIAGNOSTIC Terumo 1 40-3713 728786 095079 265454 5 [place] 110cm 5 Fr catheter (162749) Columbia Columbia 1 43845C 274941 651105977 574090 5 Verrata Plus pressure wire (61438C) INFLATOR [facility] 1 UM8201 007688 766721 630421 15 [facility] BasixCompak (ZS1745) GUIDE 6FR Cardinal 1 [id number] 445267 608476 317711 3 XBLAD 4.0 Health catheter (80369091) INTEGRITY RX Medtronic 1 [id number] 498963 188618 908487 5 [id number] 3.0 x 22 stent ([id number]) ZEPHYR Cardinal 1 363135 560300 5787164 185428 5 REGULAR TR Health BAND (764225) Signature Audit [place] Stage Time Signature Unsigned Intra-Procedure 06/05/2019 Elba Olivares 12:26:35 PM RT(R) Intra-Procedure 06/05/2019 Yuniel 12:27:27 PM Bia CARTWRIGHT Intra-Procedure 06/05/2019 Satish Mitchell 12:27:42 PM [place] [id number] [place] [address]
[~2019-06-03 20:33] MED LIST: ELIQUIS5 MG PO; HYZAAR 50-12.51 TAB PO; METOPROLOL TART50 MG PO; MULTAQ400 MG PO
[2019-06-03 21:26] LABS: BASOPHILS 0 % (0-2); EOSINOPHILS 0 % (0-7); HEMOGLOBIN 13.1 g/dL (12-16); IMMATURE GRANULOCYTES 0.2 % (0-5); LYMPHOCYTES 13.2 % (15-50); MCH 30.5 pg (26.0-34.0); MCHC 32.8 g/dL (31.0-37.0); MCV 93.2 fL (80.0-100.0); MEAN PLATELET VOLUME 9.2 fL (7.4-10.4); NEUTROPHILS 74.6 % (40-80); PLATELET COUNT 234 10x3/uL (130-400); RBC 4.29 10x6/uL (4.00-5.40); WBC 4.2 10x3/uL (4.8-10.8)
[2019-06-03 21:44] LABS: ANION GAP 9.4 mmol/L (8-16); CARBON DIOXIDE 29.2 mmol/L (21.0-32.0); POTASSIUM - SERUM 4.6 mmol/L (3.5-5.1)
[2019-06-03 21:52] LABS: ALBUMIN 2.9 g/dL (3.4-5.0); BILIRUBIN - TOTAL 0.65 mg/dL (0.2-1.3); PROTEIN - SERUM 5.9 g/dL (6.4-8.2); TROPONIN-I 0.026 ng/mL (0.000-0.060)
[2019-06-03 22:23] LABS: INR 1.59 (0.85-1.17); PROTIME 18.8 SECONDS (11.6-15.0)
--- NOTE | 2019-06-03 22:56 | NUR ---
RN SPOKE TO PT SPOUSE, ASA, VIA TELEPHONE. PT REQUESTING UPDATE ON PT ADMISSION OR DC HOME. SPOUSE NUMBER: [phone]
[2019-06-04] VITALS (7 sets, daily range): BP systolic 95–132; BP diastolic 55–84; Ht 170.2 cm; Wt 75.3 kg
--- NOTE | 2019-06-04 00:25 | NUR ---
RECEIVED PT FROM ER VIA BED. ALERT AND ORIENTED X4. C/O N/V/D X3 DAYS AND STATES HAS HAD THE SAME. AMBULATORY. DIARRHEA STOOL SOON SHE GOT TO ROOM. PT GIVEN SPECIMEN CUP FOR U/A WHEN ABLE. RESP IRREG, NONLABORED. O2 @ 2LNC. C/O SOB, NONPROD COUGH. BBS CTA IN LT LOBES AND DIMINISHED IN RLL. NS @ 75 MLHR INFUSING IN RT AC. STATES SHE IS SUPPOSED TO HAVE CARDIOVERSION THIS WEEK. PT IS [place] AND HAS BILAT HEARING AIDES THAT WERE PLACED IN BLUE CUP WITH LID AND PUT ON BEDSIDE TABLE. DENIES PAIN. NO ACUTE DISTRESS. SR ELEVATED X2. CL IN REACH.
--- NOTE | 2019-06-04 03:57 | NUR ---
LYING IN BED. DENIES NAUSEA AT THIS TIME. O2 IN USE. RESP NONLABORED. NO DISTRESS. CL IN REACH
--- NOTE | 2019-06-04 07:30 | NUR ---
PT RECEIVED AWAKE AND ALERT IN BED. TELEMETRY IN PLACE, OXYGEN IN USE. WAITING FOR CARDIAC CONSULT. ASKING ABOUT CARDIOVERSION.
--- NOTE | 2019-06-04 19:21 | NUR ---
EVENING ROUNDS COMPLETE. PT SITTING UP IN BED. NO SIGNS OF DISTRESS. AAOX4. PT DENIES ANY PAIN OR NEEDS AT THIS TIME. CL IN REACH, BED IN LOWEST POSITION.
[2019-06-05] VITALS: BP 94/59
--- NOTE | 2019-06-05 00:11 | NUR ---
TERENCE SANTANA APN. PT BP MANUALLY TAKEN, 80/55.
--- NOTE | 2019-06-05 00:15 | NUR ---
SPOKE WITH PANTERA SANTANA APN. AFTER REVIEWING PT CHART IT WAS DECIDED TO TAKE PT BP AGAIN, SINCE HER HEART RATE HAD LOWERED SINCE LAST TAKE. PT BP NOW 94/59.
[2019-06-05 04:00] VITALS: BP 117/77
[2019-06-05 09:01] VITALS: BP 110/52
--- NOTE | 2019-06-05 11:25 | CN ---
PATIENT NAME:GERMAN STARK MEDICAL RECORD: [id number] : 37 LOCATION:D.M2 D.2129 ADMIT DATE: 06/03/19 ACCOUNT: [id number] CONSULTING PHYSICIAN: JUAN RAMON HAMILTON MD REFERRING PHYSICIAN: NIKOS DAVID MD DATE OF CONSULTATION: 06/04/2019 DIAGNOSES: 1. Atrial fibrillation. 2. Angina. 3. Abnormal ECG. 4. Shortness of breath. 5. Pneumonia. 6. Hypertension. HISTORY OF PRESENT ILLNESS: Mrs. Stark presented on 05/15/2019 with palpitations and chest pain. She ruled out. She was found to be in atrial fibrillation. She underwent pharmacotherapy with metoprolol and Multaq, cardioverted, has since reverted back to atrial fibrillation. She has continued to have chest pain. Her EKG has T-wave inversions in the lateral leads. No other ischemic workup has been undertaken. Her chest pain is a typical anginal pain with a dull aching pressure-like sensation across the anterior chest. It is worse when she has significant palpitations associated with it. Her heart rate is overall controlled with the metoprolol and Multaq in the 80s. She remains in atrial fibrillation. She was scheduled for repeat cardioversion. She has been on Eliquis. PHYSICAL EXAMINATION: CONSTITUTIONAL/GENERAL APPEARANCE: Well nourished, well developed, appears stated age. EYES: Lids and conjunctivae noninjected. No discharge. No pallor. ENT: Lips within normal limit. No cyanosis. No pallor. NECK: Carotid arteries, bilateral normal upstroke. No bruits. No thrills. No jugular venous pressure or distention. CERVICAL LYMPH NODES: Nontender. Nonenlarged. THYROID: Not enlarged. No nodules. CARDIOVASCULAR: Precordial exam, nondisplaced. No heaves or pericardial thrills. Rate and rhythm, regular. Heart sounds, normal S1, normal S2. No S3, no gallop, no rub. Systolic murmur, not heard. Diastolic murmur, not heard. RESPIRATORY: Respiratory effort, unlabored. Normal curvature. No thoracic deformity. No chest wall tenderness. Percussion, resonant. Auscultation, clear. No wheezes, no rales, no rhonchi. ABDOMEN: Soft, nondistended, nontender. No abdominal pain, no vomiting and normal appetite. MUSCULOSKELETAL: No joint tenderness, normal gait, normal tone. SKIN: Warm and dry. OVERALL IMPRESSION: Chest pain compatible with angina in a worsening fashion. She is now having episodes of rest pain, class IV. We will plan for cardiac catheterization for evaluation of these ischemic symptomatology and plan for cardioversion as well. TRANSINT:[id number] Voice Confirmation ID: [id number] DOCUMENT ID: [id number] CONSULT REPORT [id number] GERMAN STARK, JUAN RAMON WAYNE at 1125 CC: [id number] DICTATION DATE: 06/04/19 0902 PRODUCTION UTILITY WORKER: 06/04/19 1110 ADM IN [place] [id number] [place] [id number]
[2019-06-05 14:55] LABS: MEAN PLATELET VOLUME 8.9 fL (7.4-10.4); RDW 14.4 % (11.5-14.5)
[2019-06-05 15:00] LABS: ANION GAP 12.2 mmol/L (8-16); CALCIUM 7.2 mg/dL (8.5-10.1); CREATININE - SERUM 1.1 mg/dL (0.6-1.3)
[2019-06-05 15:04] LABS: CARBON DIOXIDE 21.8 mmol/L (21.0-32.0)
[2019-06-05 15:08] LABS: MCV 96.4 fL (80.0-100.0)
[2019-06-05 15:11] LABS: BASOPHILS 0.3 % (0-2); EOSINOPHILS 1.1 % (0-7); HEMATOCRIT 39.6 % (36.0-48.0); HEMOGLOBIN 12.6 g/dL (12-16); LYMPHOCYTES 35.6 % (15-50); MCH 30.7 pg (26.0-34.0); MCHC 31.8 g/dL (31.0-37.0); MONOCYTES 10.1 % (2-11); NEUTROPHILS 52.9 % (40-80); PLATELET COUNT 231 10x3/uL (130-400); RBC 4.11 10x6/uL (4.00-5.40); WBC 3.6 10x3/uL (4.8-10.8)
[2019-06-05 16:12] VITALS: BP 103/63
[2019-06-05 18:51] LABS: APPEARANCE CLEAR (CLEAR); BILIRUBIN NEGATIVE (NEGATIVE); COLOR YELLOW (YELLOW); GLUCOSE NEGATIVE (NEGATIVE); KETONE NEGATIVE (NEGATIVE); NITRITE NEGATIVE (NEGATIVE); PROTEIN TRACE mg/dL (NEGATIVE); UROBILINOGEN NORMAL (NORMAL)
--- NOTE | 2019-06-05 19:10 | NUR ---
EVENING ROUNDS COMPLETE. PT LAYING IN BED. AAOX4, NO SIGNS OF DISTRESS. PT DENIES ANY PAIN OR NEEDS AT THIS TIME. O2 @2L NC, PIV IN RAC INFUSING AT 75 ML/HR. CL IN REACH, BED IN LOWEST POSITION.
[2019-06-05 20:00] VITALS: BP 102/62
--- NOTE | 2019-06-05 23:00 | NUR ---
PT PIV IN RAC INFILTRATED, REMOVED WITH TIP INTACT. NEW PIV STARTED IN LEFT FOREARM. PT TOLERATED WELL. CL IN REACH, BED IN LOWEST POSITION. PT DENIES ANY PAIN OR NEEDS AT THIS TIME.
[2019-06-06] VITALS: BP 117/77
[2019-06-06 04:00] VITALS: BP 109/66
[2019-06-06 06:13] LABS: BASOPHILS 0.3 % (0-2); EOSINOPHILS 2.9 % (0-7); HEMATOCRIT 37.7 % (36.0-48.0); LYMPHOCYTES 32.5 % (15-50); MCH 30.3 pg (26.0-34.0); MCHC 31.8 g/dL (31.0-37.0); MCV 95.2 fL (80.0-100.0); MEAN PLATELET VOLUME 9.1 fL (7.4-10.4); MONOCYTES 11.3 % (2-11); PLATELET COUNT 212 10x3/uL (130-400); RBC 3.96 10x6/uL (4.00-5.40); RDW 14.4 % (11.5-14.5); WBC 3.8 10x3/uL (4.8-10.8)
[2019-06-06 06:29] LABS: CREATININE - SERUM 1.1 mg/dL (0.6-1.3)
--- NOTE | 2019-06-06 07:24 | NUR ---
ASSESSMENT DONE. DENIES NEEDS
[2019-06-06 08:00] VITALS: BP 115/78
--- NOTE | 2019-06-06 09:40 | NUR ---
I have reviewed this patient and I concur with the Shift Assessment completed by the Licensed Practical Nurse today this shift.
[2019-06-06 12:00] VITALS: BP 147/66
--- NOTE | 2019-06-06 15:47 | MORECARE ---
CASE MANAGEMENT DISCHARGE SUMMARY PATIENT: GERMAN GUIDRY UNIT: [id number] ADM DATE: 06/03/19 AGE: 84 : 36 SEX: F ROOM/BED: D.3022 AUTHOR: MAYANK,DOC PHYSICIAN: REFERRING PHYSICIAN: NIKOS DAVID MD DATE OF SERVICE: 06/06/19 Discharge Plan Patient Name: GERMAN GUIDRY Facility: [facility]:[place] : 1935 Planned Disposition: Anticipated Discharge Date: Discharge Date: Expected LOS: Initial Reviewer: [email or web address] Initial Review Date: 06/04/2019 Generated: 06/06/19 4:47 pm Comments DCP- Discharge Planning Updated by [email or web address]: Erica Mcnally on 06/06/19 2:[address] Patient Name: GERMAN GUIDRY Admission Status: ER Accout number: [id number] Admission Date: 06-03-2019 : 1935 Admission Diagnosis: Attending: NIKOS DAVID Current LOS: 3 Anticipated DC Date: Planned Disposition: Primary Insurance: [facility] MEDICARE SOLUTIONS Discharge Planning Comments: CM met with patient to complete initial dc planning assessment. CM educated patient on the CM role and verbal consent given by patient to complete assessment. CM verified patient's address, phone number, and emergency contact phone numbers. Patient lives at home with her Celso. At discharge patient plans to return home and feels this is a safe discharge. CM discussed availability of home health, rehab services, and medical equipment. Patient denied known discharge needs at this time. Transportation provider at discharge will be her . CM will continue to follow and will assist as needed with dc plans/needs. Press Reader: Erica Mcnally DCPIA - Discharge Planning Initial Assessment Updated by [email or web address]: Erica Mcnally on 06/06/19 3:44 pm * Is the patient Alert and Oriented? Yes * How many steps to enter\exit or inside your home? 0/0 * PCP shue * [place] [facility] [place] * Preadmission Environment Home with Family * ADLs Independent * Equipment Cane Rolling Walker Shower Chair * List name and contact numbers for known caregivers / representatives who currently or will assist patient after discharge: Celso () [phone] * Verbal permission to speak to the caregivers and representatives has been obtained from the patient. Yes * Community resources currently utilized None * Additional services required to return to the preadmission environment? No * Can the patient safely return to the preadmission environment? Yes * Has this patient been hospitalized within the prior 30 days at any hospital? No Patient Name: GERMAN GUIDRY Page 40390 at 1547 All edits/amendments must be made on the electronic document DICTATION DATE: 06/06/191546 INTERMEDIATE CARD TENDER: ANAYELI 06/06/19 1547 RPT#: [id number] DC DATE: STATUS: ADM IN [facility] [address] [place] [address] END OF REPORT
[2019-06-06 16:00] VITALS: BP 101/82
--- NOTE | 2019-06-06 17:22 | NUR ---
WITHOUT CHANGES OR DISTRESS NOTED AT THIS TIME. DENIES NEEDS
[2019-06-06 20:00] VITALS: BP 126/81
[2019-06-07] VITALS: BP 115/68
[2019-06-07 04:00] VITALS: BP 105/71
[2019-06-07 06:52] LABS: BASOPHILS 0.5 % (0-2); EOSINOPHILS 3.7 % (0-7); HEMATOCRIT 38.3 % (36.0-48.0); HEMOGLOBIN 12.4 g/dL (12-16); LYMPHOCYTES 28.4 % (15-50); MCH 30.5 pg (26.0-34.0); MCHC 32.4 g/dL (31.0-37.0); MCV 94.1 fL (80.0-100.0); MEAN PLATELET VOLUME 9.2 fL (7.4-10.4); MONOCYTES 10.3 % (2-11); NEUTROPHILS 57.1 % (40-80); PLATELET COUNT 193 10x3/uL (130-400); RBC 4.07 10x6/uL (4.00-5.40); RDW 14.3 % (11.5-14.5); WBC 4.1 10x3/uL (4.8-10.8)
[2019-06-07 07:32] LABS: CALCIUM 7.4 mg/dL (8.5-10.1); CARBON DIOXIDE 25.8 mmol/L (21.0-32.0); CREATININE - SERUM 1.2 mg/dL (0.6-1.3); POTASSIUM - SERUM 3.8 mmol/L (3.5-5.1)
[2019-06-07 08:00] VITALS: BP 147/81
--- NOTE | 2019-06-07 08:09 | NUR ---
ASSESSMENT DONE DENIES NEEDS
--- NOTE | 2019-06-07 10:24 | NUR ---
I have reviewed this patient and I concur with the Shift Assessment completed by the Licensed Practical Nurse today this shift.
[2019-06-07 12:00] VITALS: BP 120/87
--- NOTE | 2019-06-07 12:54 | OP ---
PATIENT NAME: GERMAN GUIDRY MEDICAL RECORD: [id number] :37 LOCATION:D.M2 D.2129 ADMISSION DATE:06/03/19 SURGEON: JUAN RAMON HAMILTON MD DATE OF OPERATION: 06/05/2019 PROCEDURES: 1. PTCA stent LAD. 2. IFR. 3. Left heart catheterization. 4. Selective coronary angiography. 5. Left ventriculogram. 6. DC cardioversion. INDICATION: Angina, coronary artery disease, and atrial fibrillation. PROCEDURE IN DETAIL: After informed consent was obtained and after a detailed description of risks, benefits as well as alternative therapies, the patient elected to proceed with angiogram and angioplasty. The right radial area was prepped and draped in normal sterile fashion. Right radial artery was cannulated via modified Seldinger technique with placement of 6-Italian sheath. All catheters exchanged through this sheath. FINDINGS: Left ventriculogram was performed in standard 30-degree PRICE view, reveals good cardiac wall motion, ejection fraction estimated at 55% to 60%. SELECTIVE CORONARY ANGIOGRAPHY: 1. Left main is with no significant angiographic disease. 2. Left anterior descending has 70% stenosis proximally and IFR was abnormal at 0.89. 3. Left circumflex has mild irregularities, but no flow-limiting stenosis. 4. Right coronary has mild irregularities, but no flow-limiting stenosis. PTCA STENT OF THE LAD: The stent used was a 3.0 x 22-mm Integrity. Result was 0% residual stenosis. DC CARDIOVERSION: IV conscious sedation was performed per anesthesia. Continuous heart rate, O2 saturation, blood pressure monitoring all undertaken, all of which remains stable. She received 1 shock restoring sinus rhythm. OVERALL IMPRESSION: 1. Successful percutaneous transluminal coronary angioplasty stent of the left anterior descending going from 70% initial stenosis with an abnormal IFR to 0% residual. 2. Successful DC cardioversion from atrial fibrillation to sinus rhythm. TRANSINT:[id number] Voice Confirmation ID: [id number] DOCUMENT ID: [id number] OPERATIVE REPORT [id number] GERMAN GUIDRY JEFFREY MD at 1254 CC: [id number] DICTATION DATE: 06/05/19 122 FELLING BUCKING SUPERVISOR: 06/05/19 1743 [place] [address]
[2019-06-07] MEDS ORDERED: LASIX40 MG PO (13:18)
[2019-06-07] MEDS ORDERED: PLAVIX75 MG PO (13:18)
[2019-06-07] MEDS ORDERED: PROTONIX40 MG PO (13:19)
[2019-06-07] MEDS ORDERED: POTASSIUM CHLO20 MEQ PO (13:19)
--- NOTE | 2019-06-07 13:21 | NUR ---
Nutrition Follow-up: Fair/good PO intake. Noted plans to d/c today. Diet: Cardiac, Ensure TID PO intake: 56% avg x 4 meals No new wt Labs noted: Ca 7.4 Meds noted: Lasix, Protonix -Continue current diet as tolerated. -Encourage PO intake. -Monitor wt. -RD following.
[2019-06-07] MEDS ORDERED: BAYER CHEWABLE81 MG PO (14:20)
--- NOTE | 2019-06-07 15:50 | MORECARE ---
CASE MANAGEMENT DISCHARGE SUMMARY PATIENT: GERMAN GUIDRY UNIT: [id number] ADM DATE: 06/03/19 AGE: 84 : 36 SEX: F ROOM/BED: D.3445 AUTHOR: MAYANK,DOC PHYSICIAN: REFERRING PHYSICIAN: NIKOS DAVID MD DATE OF SERVICE: 06/07/19 Discharge Plan Patient Name: GERMAN GUIDRY Facility: [facility]:[place] : 1935 Planned Disposition: Home Anticipated Discharge Date: 06/07/19 Discharge Date: Expected LOS: 4 Initial Reviewer: [email or web address] Initial Review Date: 06/04/2019 Generated: 06/07/19 4:50 pm Comments DCP- Discharge Planning Updated by [email or web address]: Erica Mcnally on 06/06/19 2:[address] Patient Name: GERMAN GUIDRY Admission Status: ER Accout number: [id number] Admission Date: 06-03-2019 : 1935 Admission Diagnosis: Attending: NIKOS DAVID Current LOS: 3 Anticipated DC Date: Planned Disposition: Primary Insurance: [facility] MEDICARE SOLUTIONS Discharge Planning Comments: CM met with patient to complete initial dc planning assessment. CM educated patient on the CM role and verbal consent given by patient to complete assessment. CM verified patient's address, phone number, and emergency contact phone numbers. Patient lives at home with her Celso. At discharge patient plans to return home and feels this is a safe discharge. CM discussed availability of home health, rehab services, and medical equipment. Patient denied known discharge needs at this time. Transportation provider at discharge will be her . CM will continue to follow and will assist as needed with dc plans/needs. Strap Setter: Erica Mcnally DCPIA - Discharge Planning Initial Assessment Updated by [email or web address]: Erica Mcnally on 06/06/19 3:44 pm * Is the patient Alert and Oriented? Yes * How many steps to enter\exit or inside your home? 0/0 * PCP shue * [place] [facility] [place] * Preadmission Environment Home with Family * ADLs Independent * Equipment Cane Rolling Walker Shower Chair * List name and contact numbers for known caregivers / representatives who currently or will assist patient after discharge: Celso () [phone] * Verbal permission to speak to the caregivers and representatives has been obtained from the patient. Yes * Community resources currently utilized None * Additional services required to return to the preadmission environment? No * Can the patient safely return to the preadmission environment? Yes * Has this patient been hospitalized within the prior 30 days at any hospital? No External Providers External Provider: [facility] Next Contact Date: 06/07/2019 Service Request Date: Service Type: Resolution: Reviewer: Comments: Last DP export: 06/06/19 2:47 p Patient Name: GERMAN GUIDRY Page [phone] at 1550 All edits/amendments must be made on the electronic document DICTATION DATE: 06/07/19 1550 OPTICIAN MANAGER: ANAYELI 06/07/19 1550 RPT#: [id number] DC DATE: STATUS: ADM IN [facility] [address] [place] [address] END OF REPORT
[2019-06-07 15:57] VITALS: BP 136/82
--- NOTE | 2019-06-07 16:13 | MORECARE ---
CASE MANAGEMENT DISCHARGE SUMMARY PATIENT: GERMAN GUIDRY UNIT: [id number] ADM DATE: 06/03/19 AGE: 84 : 36 SEX: F ROOM/BED: D.7070 AUTHOR: MAYANK,DOC PHYSICIAN: REFERRING PHYSICIAN: NIKOS DAVID MD DATE OF SERVICE: 06/07/19 Discharge Plan Patient Name: GERMAN GUIDRY Facility: [facility]:[place] : 1935 Planned Disposition: Home Anticipated Discharge Date: 06/07/19 Discharge Date: Expected LOS: 4 Initial Reviewer: [email or web address] Initial Review Date: 06/04/2019 Generated: 06/07/19 5:13 pm Comments DCP- Discharge Planning Updated by [email or web address]: Raghav Palomo on 06/07/19 3:[address] Patient Name: GERMAN GUIDRY Admission Status: ER Accout number: [id number] Admission Date: 06-03-2019 : 1935 Admission Diagnosis: Attending: NIKOS DAVID Current LOS: 4 Anticipated DC Date: 06-07-2019 Planned Disposition: Home Primary Insurance: [facility] MEDICARE SOLUTIONS Discharge Planning Comments: CM RECEIVED ORDER TO EVALUATE FOR HOME OXYGEN AND QUALIFYING OXYGEN TESTING. CM MET WITH PT IN ROOM TO DISCUSS DISCHARGE NEEDS AND PLANNING. CM DISCUSSED AVAILABILITY OF HOME HEALTH, REHAB SERVICES AND MEDICAL EQUIPMENT. PT DENIES DISCHARGE NEEDS OTHER THAN OXYGEN. SPOUSE TO TRANSPORT HOME AT DISCHARGE. PT HAS CPAP FROM [facility] AND PREFERS THEM AND [facility] SECOND CHOICE. CHOICE COMPLETED. IMPORTANT MESSAGE FROM MEDICARE PROVIDED AND EXPLAINED. PT WANTS TO SPEAK TO THE DOCTOR PRIOR TO LEAVING. CM NOTIFIED DR. DAVID VIA MESSAGE. CM CALLED AND SPOKE TO KEEGAN AT [facility], THEY ARE OUT OF INSURANCE NETWORK FOR PT'S INSURANCE AND REFERRED PT TO [facility]. CM CALLED [facility], , SPOKE TO AI AND PROVIDED REFERRAL INFORMATION. CM FAXED REFERRAL TO [facility], . AI ADVISED THEY WILL DELIVER PORTABLE OXYGEN TO HOSPITAL TODAY AND WILL ARRANGE HOME OXYGEN WHEN PT ARRIVES AT HOME AFTER DISCHARGE. PT AND SPOUSE NOTIFIED IN ROOM. VP SOFTWARE SUPPORT NURSE NOTIFIED. Bus Repair Supervisor: Raghav Palomo DCP- Discharge Planning Updated by [id number]: Erica Mcnally on 06/06/19 2:[address] Patient Name: GERMAN GUIDRY Admission Status: ER Accout number: [id number] Admission Date: 06-03-2019 : 1935 Admission Diagnosis: Attending: NIKOS DAVID Current LOS: 3 Anticipated DC Date: Planned Disposition: Primary Insurance: [facility] MEDICARE SOLUTIONS Discharge Planning Comments: CM met with patient to complete initial dc planning assessment. CM educated patient on the CM role and verbal consent given by patient to complete assessment. CM verified patient's address, phone number, and emergency contact phone numbers. Patient lives at home with her Celso. At discharge patient plans to return home and feels this is a safe discharge. CM discussed availability of home health, rehab services, and medical equipment. Patient denied known discharge needs at this time. Transportation provider at discharge will be her . CM will continue to follow and will assist as needed with dc plans/needs. Bus Repair Supervisor: Erica Mcnally DCPIA - Discharge Planning Initial Assessment Updated by [email or web address]: Erica Mcnally on 06/06/19 3:44 pm * Is the patient Alert and Oriented? Yes * How many steps to enter\exit or inside your home? 0/0 * PCP shue * [facility] * Preadmission Environment Home with Family * ADLs Independent * Equipment Cane Rolling Walker Shower Chair * List name and contact numbers for known caregivers / representatives who currently or will assist patient after discharge: Celso () [phone] * Verbal permission to speak to the caregivers and representatives has been obtained from the patient. Yes * Community resources currently utilized None * Additional services required to return to the preadmission environment? No * Can the patient safely return to the preadmission environment? Yes * Has this patient been hospitalized within the prior 30 days at any hospital? No Coverage Notice Reviewer: [id number] - Raghav Palomo Notice Issued Date-Time: 06/07/2019 15:15 Notice Type: Patient Choice Letter Notice Delivered To: Patient Relationship to Patient: Transportation Analyst Name: Delivery Method: HAND - Hand Delivered Nydia Days: Prior Verbal Notification: Recipient Understood Notice: Yes Recipient Signature: Yes Med Rec Note Co-signed by Attending: Coverage Notice Comment: [facility] Reviewer: [email or web address] Yonathan Palomo Notice Issued Date-Time: 06/07/2019 15:15 Notice Type: IM Discharge Notice Notice Delivered To: Patient Relationship to Patient: Transportation Analyst Name: Delivery Method: HAND - Hand Delivered Nydia Days: Prior Verbal Notification: Recipient Understood Notice: Yes Recipient Signature: Yes Med Rec Note Co-signed by Attending: Coverage Notice Comment: Last DP export: 06/07/19 2:50 p Patient Name: GERMAN GUIDRY Page 55255 at 1613 All edits/amendments must be made on the electronic document DICTATION DATE: 06/07/19 161 LABORATORY TECHNOLOGIST: ANAYELI 06/07/19 1613 RPT#: [id number] DC DATE: STATUS: ADM IN [facility] [address] [place] [address] END OF REPORT
--- NOTE | 2019-06-07 17:02 | NUR ---
DC GIVEN TO PT
--- NOTE | 2019-06-07 17:03 | NUR ---
DC HOME PER PERSONAL CAR
== END 2019-06-07 17:04 | disposition home or self-care (01) | DRG 248 ==
LOC: D.ER 20:33 → D.M2 23:12
PROVIDERS: Emergency Medicine; Internal Medicine Interventional Cardiology; ADMIT Internal Medicine Nephrology; ATTEND Internal Medicine Nephrology
PROC: B2111ZZ Fluoroscopy of Multiple Coronary Arteries using Low Osmolar Contrast (ICD-10-PCS; 2019-06-05)
PROC: B2151ZZ Fluoroscopy of Left Heart using Low Osmolar Contrast (ICD-10-PCS; 2019-06-05)
PROC: 02703DZ Dilation of Coronary Artery, One Artery with Intraluminal Device, Percutaneous Approach (ICD-10-PCS; principal; 2019-06-05 10:30)
PROC: 4A033BC Measurement of Arterial Pressure, Coronary, Percutaneous Approach (ICD-10-PCS; 2019-06-05 10:30)
PROC: 4A023N7 Measurement of Cardiac Sampling and Pressure, Left Heart, Percutaneous Approach (ICD-10-PCS; 2019-06-05 10:30)
DX: I25.110 Atherosclerotic heart disease of native coronary artery with unstable angina pectoris (principal); J18.9 Pneumonia, unspecified organism; N17.9 Acute kidney failure, unspecified; I48.91 Unspecified atrial fibrillation; K52.9 Noninfective gastroenteritis and colitis, unspecified; I20.9 Angina pectoris, unspecified; I10 Essential (primary) hypertension; R94.31 Abnormal electrocardiogram [ECG] [EKG]

== ENCOUNTER 2019-07-12 11:02 | Outpatient (CLI) | payer MEDICARE ==
[~2019-07-12] VITALS: Ht 170.2 cm; Wt 77.3 kg
--- NOTE | ~2019-07-12 | HEMODYNAMI ---
PATIENT:GERMAN GUIDRY MEDICAL RECORD: [id number] : 37 LOCATION:D.CAT ADMISSION DATE: 07/12/19 Generatedon:07/12/201913:19 Patient name: GERMAN GUIDRY Patient #: [id number] SSN: [id number] : 1935 Date of study: 07/12/2019 Page: Of Hemodynamic Procedure Report Patient Data Patient Demographics Procedure consent was obtained First Name: GERMAN Gender: Female Last Name: CHAO : 1935 Patient #: [id number] Age: 84 year(s) Race: SSN: [id number] Additional ID: [id number] Contact details [address]: [address] [place] [address] State: [place] City: [place] Zip code: [address] Past Medical History Allergies Allergen Reaction Date Comments Reported Other allergy 05/18/2019 lisinopril Other allergy 06/05/2019 LISINOPRIL Admission Admission Data Admission Date: 07/12/2019 Admission Time: 11:02 Procedure Procedure Types Cath Procedure Diagnostic Procedure Cardioversion External Procedure Description Procedure Date Procedure Date: 07/12/2019 Procedure Start Time: 13:02 Procedure End Time: 13:17 Procedure Staff Name Function Aureliano Gunter MD Performing Physician Steven López RN Nurse Eddi Uribe RT Monitor Sandi Ann RT Steamboat Captain Noah Esparza MD Additional personnel Procedure Medications Medication Administration Route Dosage Oxygen etCO2 Nasal cannula 2 l/min Refer to Anesthesia Notes for Sedation Medications Hemodynamics Rest Heart Rate: 119 (bpm) Snapshots Pre Cath Intra NCS Post Cath Vital Signs Time Heart Resp SPO2 etCO2 NIBP (mmHg) Rhythm Pain Sedation Rate (ipm) (%) (mmHg) Status Level (bpm) 12:57:35 98 15 99 0 128/93(104) NSR 0 (11) 10(A) , No pain 13:02:43 103 22 99 0 128/87(108) NSR 0 (11) 10(A) , No pain 13:06:56 56 15 92 0 89/59(71) NSR 0 (11) 9(A) , No pain 13:09:34 51 15 98 0 75/52(62) NSR 0 (11) 9(A) , No pain 13:13:32 53 27 98 0 84/57(78) NSR 0 (11) 10(A) , No pain 13:17:31 0 No Cuff NSR 0 (11) 10(A) , No pain Medications Time Medication Route Dose Verified Delivered Reason Notes Effective ness by by 12:56:50 Oxygen etCO2 2 Aureliano Harris used for Nasal l/min St Bull López RN procedure cannula 12:56:53 Refer to Aureliano Harris Anesthesia St Bull López RN Notes for MD Sedation Medications Procedure Log Time Note 12:12:30 Informed consent obtained and on chart 12:14:32 Diagnostic Cath Status : Elective 12:17:22 Time tracking: Regular hours (M-F 7:00 - 5:00) 12:17:29 Plan of Care:Hemodynamics will remain stable., Cardiac rhythm will remain stable., Comfort level will be maintained., Respiratory function will remain adequate., Patient/ family verbilizes understanding of procedure., Procedure tolerated without complication., Recovers from procedure without complications.. 12:18:49 H&P Date Dictated: 07/05/2019 Within 30 days and on chart., H&P Addendum completed by physician on day of procedure. (MUST COMPLETE FOR ALL OUTPATIENTS). 12:33:34 Sandi Ann RT(R) sent for patient. Start room use. 12:33:53 Procedure Status Cardioversion. 12:43:20 Patient received from Pre/Post Procedure Room to CCL 2 Alert and oriented. Tansferred to table in Supine position. 12:43:27 Warm blankets applied, and rhonda hugger turned on for patient comfort. 12:43:28 Correct patient and procedure confirmed by team. 12:43:28 ECG and BP/O2 sat monitors applied to patient. 12:51:35 ------Cardioversion------ 12:51:47 Quick Combo opened to sterile field. 12:56:40 Vital chart was started 12:56:50 Oxygen 2 l/min etCO2 Nasal cannula was administered by Steven López RN; used for procedure; Verbal order read back and verified. 12:56:53 Refer to Anesthesia Notes for Sedation Medications was administered by Steven López RN; ; Verbal order read back and verified. 12:57:47 Quick combo pads placed on patients chest and back. 12:57:50 Noah Esparza MD present and monitoring patient for TIVA. 12:57:52 Aureliano Gunter MD present and monitoring patient for TIVA. 12:58:01 Baseline sample Acquired. 12:58:13 Rhythm: atrial fibrillation 12:58:19 Full Disclosure recording started 12:58:22 Pre-procedure instructions explained to patient. 12:58:27 Family in patients room. 12:58:47 ----Pre-sedation anethsthesia assessment.---- 12:59:12 Previous problem with sedation/anesthesia? No ? 12:59:16 Snore? Yes 12:59:17 Sleep apnea? Yes 12:59:23 Deviated septum? No 12:59:28 Opens mouth fully? Yes 12:59:29 Sticks out tongue? Yes 12:59:37 Airway obstruction? No ? 12:59:48 IV patent on arrival in right antecubital with 0.9% NaCl at KVO. 13:00:16 --------ALL STOP TIME OUT------ 13:00:17 Final Timeout: patient, procedure, and site verified with staff and physician. All members of the team are in agreement. 13:00:44 Fire Safety Assessment: C--Open oxygen or nitrous oxide is being used. 13:00:59 Physical assessment completed. ASA score P 3 - A patient with severe systemic disease as per Aureliano Gunter MD. 13:01:12 Sedation plan: TIVA Medication:Propofol 13:02:22 Procedure started. 13:04:11 Defibrillator synced and charged to 200 Joules. 13:04:14 Shock delivered. 13:04:35 Patient cardioverted to sinus rhythm . 13:11:15 Procedure ended.(Physican Out) 13:15:47 Post-procedure physical assessment completed. ASA score P 3 - A patient with severe systemic disease as per Noah Esparza MD. 13:15:54 Procedure and supply charges have been captured, reviewed, submitted and are correct. 13:16:47 Operative report dictated upon procedure completion. 13:16:48 See physician's report for complete and final results. 13:16:56 Report given to Pre/Post Procedure Room. 13:17:01 Patient transfered to Pre/Post Procedure Room with Stretcher. 13:17:04 Procedure ended. 13:17:04 Full Disclosure recording stopped 13:18:07 End room use (Document Last) 13:19:23 Vital chart was stopped Device Usage Item Manufacture Quantity Catalog Hospital Part Current Minimal Lot# / Name Number Charge Number Stock Stock Gladys al# Code [facility] AMVONET [facility] 1 [id number] Combo Signature Audit [place] Stage Time Signature Unsigned Intra-Procedure 07/12/2019 Eddi Uribe 1:17:53 PM RT(R) (CV) Intra-Procedure 07/12/2019 Steven López RN 1:18:41 PM Intra-Procedure 07/12/2019 Aureliano Monahan 1:19:22 PM Bull [facility] Signatures Performing Physician : Signature : Aureliano Gunter MD Date : Time : Nurse : Steven López RN Signature : Date : Time : Monitor : Eddi Uribe RT Signature : Date : Time : [facility] [address] [place] [address]
[~2019-07-12 11:02] MED LIST changes: +BAYER CHEWABLE81 MG PO; +LASIX40 MG PO; +PLAVIX75 MG PO; +POTASSIUM CHLO20 MEQ PO; +PROTONIX40 MG PO
[2019-07-12 11:53] VITALS: BP 122/76; Ht 170.2 cm; Wt 77.3 kg
[2019-07-12 12:08] LABS: ANION GAP 9.5 mmol/L (8-16); CALCIUM 8.9 mg/dL (8.5-10.1); CREATININE - SERUM 1.5 mg/dL (0.6-1.3); POTASSIUM - SERUM 4.5 mmol/L (3.5-5.1)
[2019-07-12 12:30] LABS: INR 1.87 (0.85-1.17); PROTIME 21.3 SECONDS (11.6-15.0)
[2019-07-12 12:57] LABS: BASOPHILS 0.2 % (0-2); EOSINOPHILS 1.2 % (0-7); HEMOGLOBIN 13.2 g/dL (12-16); MCH 30.6 pg (26.0-34.0); MCV 92.6 fL (80.0-100.0); MEAN PLATELET VOLUME 9.8 fL (7.4-10.4); MONOCYTES 10.7 % (2-11); NEUTROPHILS 60.9 % (40-80); PLATELET COUNT 199 10x3/uL (130-400); RBC 4.32 10x6/uL (4.00-5.40); WBC 5.7 10x3/uL (4.8-10.8)
--- NOTE | 2019-07-12 13:25 | NUR ---
REC'D TO ROOM 5 VIA STRETCHER FROM INDUSTRIAL MAINTENANCE REPAIRER, MONITORS ESTAB. DR. BAUTISTA IN TO UPDATE PT AND FAMILY. SEE PALLETISER OPERATOR. ALARMS ON AND C/L IN REACH.
--- NOTE | 2019-07-12 13:43 | NUR ---
CM - SB 52. SANDWICH TRAY AND WATER PROVIDED, AT BS.
--- NOTE | 2019-07-12 14:05 | NUR ---
CM - SB, HR 56. PT WATCHING TV. DENIES NEEDS.
--- NOTE | 2019-07-12 14:20 | NUR ---
CM - SB, HR 56. PIV D/C'D INTACT, DSG APPLIED. PT ALLOWED UP TO GET DRESSED AND GO TO BR.
--- NOTE | 2019-07-12 14:35 | NUR ---
ALL DISCHARGE INSTRUCTIONS REVIEWED WITH PT AND . PT D/C'D VIA WC TO PRIVATE VEHICLE WITH ALL PAPER WORK AND BELONGINGS.
--- NOTE | 2019-07-16 12:51 | OP ---
PATIENT NAME: FABIOLA STARK MEDICAL RECORD: [id number] :37 LOCATION:D.CAT ADMISSION DATE: SURGEON: DELVIS BAUTISTA MD DATE OF OPERATION: 07/12/2019 PROCEDURE: Cardioversion. DESCRIPTION OF PROCEDURE: After general sedation via TIVA via anesthesia, a single synchronized shock was successful in restoring atrial fibrillation to normal sinus rhythm. IMPRESSION: Successful cardioversion on Fabiola Stark. COMPLICATIONS: None. DISPOSITION: To the floor, stable. TRANSINT:[id number] Voice Confirmation ID: [id number] DOCUMENT ID: [id number] DELVIS BAUTISTA MD at 1251 CC: [id number] DICTATION DATE: 07/12/19 1320 PATTERN CHAIN BUILDER: 07/12/19 1428 DEP CLI 07/12/19 [address] [place] [address]
== END 2019-07-12 14:35 | disposition home or self-care (01) ==
LOC: D.CATH 11:02
PROVIDERS: ATTEND Internal Medicine Interventional Cardiology
DX: I48.91 Unspecified atrial fibrillation (principal); I25.10 Atherosclerotic heart disease of native coronary artery without angina pectoris; I10 Essential (primary) hypertension

== ENCOUNTER → 2019-09-19 11:50 | Outpatient (CLI) | payer MEDICARE ==
[2019-07-12 11:53] VITALS: BMI 26.7
[2019-09-19 19:53] LABS: ANION GAP 10.6 mmol/L (8-16); CALCIUM 8.8 mg/dL (8.5-10.1); CARBON DIOXIDE 30.1 mmol/L (21.0-32.0); CREATININE - SERUM 1.3 mg/dL (0.6-1.3); POTASSIUM - SERUM 4.7 mmol/L (3.5-5.1)
== END | disposition home or self-care (01) ==
LOC: D.LABREF 11:50
PROVIDERS: ATTEND Nurse Practitioner Adult Health
DX: R60.0 Localized edema (principal)

== ENCOUNTER → 2019-09-24 13:12 | Outpatient (CLI) | payer MEDICARE ==
[2019-07-12 11:53] VITALS: BMI 26.7
[~2019-09-24 13:12] MED LIST changes: +KEFLEX500 MG PO
== END | disposition home or self-care (01) ==
LOC: D.HCCECHO 13:12
PROVIDERS: ATTEND Internal Medicine Interventional Cardiology
DX: R06.00 Dyspnea, unspecified (principal)

== ENCOUNTER 2019-09-25 14:32 | Inpatient (IN) | payer MEDICARE ==
[~2019-09-25] VITALS: Ht 170.2 cm; Wt 94.5 kg
[2019-09-25] VITALS (7 sets, daily range): BP systolic 117–132; BP diastolic 63–90
[~2019-09-25 14:32] MED LIST changes: -KEFLEX500 MG PO
[2019-09-25] MEDS ORDERED: KEFLEX500 MG PO (17:19)
[2019-09-25 18:26] LABS: BASOPHILS 0.9 % (0-2); HEMATOCRIT 44.1 % (36.0-48.0); HEMOGLOBIN 14.1 g/dL (12-16); IMMATURE GRANULOCYTES 0.2 % (0-5); LYMPHOCYTES 26.7 % (15-50); MCH 29.4 pg (26.0-34.0); MCV 92.1 fL (80.0-100.0); MEAN PLATELET VOLUME 9.9 fL (7.4-10.4); MONOCYTES 11.2 % (2-11); PLATELET COUNT 210 10x3/uL (130-400); RBC 4.79 10x6/uL (4.00-5.40); RDW 15.8 % (11.5-14.5); WBC 5.7 10x3/uL (4.8-10.8)
[2019-09-25 18:47] LABS: ANION GAP 12.1 mmol/L (8-16); CALCIUM 8.9 mg/dL (8.5-10.1); CARBON DIOXIDE 29.2 mmol/L (21.0-32.0); CREATININE - SERUM 1.4 mg/dL (0.6-1.3); POTASSIUM - SERUM 4.3 mmol/L (3.5-5.1)
[2019-09-25 18:53] LABS: ALBUMIN 3.5 g/dL (3.4-5.0); BILIRUBIN - TOTAL 1.51 mg/dL (0.2-1.3); PROTEIN - SERUM 6.8 g/dL (6.4-8.2)
[2019-09-25 18:57] LABS: APTT 30.7 SECONDS (22.8-39.4); INR 1.82 (0.85-1.17); PROTIME 20.8 SECONDS (11.6-15.0)
[2019-09-25 18:58] LABS: D-DIMER-QUANTITATIVE 1.76 ug/mLFEU (0.20-0.54)
--- NOTE | 2019-09-25 19:12 | NUR ---
BS REPORT TO CHAY ROD
--- NOTE | 2019-09-25 21:07 | NUR ---
AFIB WITH RVR METOPROLOL GIVEMN
--- NOTE | 2019-09-25 22:16 | NUR ---
2ND DOSE ,ETOPROLOL 5MGIVEMN
[2019-09-25 22:48] LABS: CKMB 4.2 U/L (0.0-3.6); CREATINE KINASE 129 UL (21-215); TROPONIN-I 0.019 ng/mL (0.000-0.060)
--- NOTE | 2019-09-25 22:57 | NUR ---
LOPRESSOR 5 MG IV GIVEN
[2019-09-26] VITALS: BP 124/96
--- NOTE | 2019-09-26 | NUR ---
RECEIVED PATIENT TO ROOM 2113 VIA WHEELCHAIR. PATIENT AMBULATED TO BATHROOM THEN BED INDEPENDENTLY. VSS. PATIENT AAOX4, SITTING AT BEDSIDE. PATIENT DENIES NEEDS AT THIS TIME. CL IN REACH, BED LOCKED AND LOWERED. WILL CTM.
--- NOTE | 2019-09-26 01:07 | NUR ---
BARGE CAPTAIN REPORTS PATIENT IS RUNNING UNCONTROLLED A-FIB HR 120-150'S
--- NOTE | 2019-09-26 01:21 | NUR ---
RECEIVED CALLBACK FROM JAKI SUTHERLAND APN. ORDERS RECEIVED.
[2019-09-26 04:00] VITALS: BP 118/71
[2019-09-26 04:02] VITALS: BMI 26.3
[2019-09-26 05:53] LABS: BASOPHILS 0.6 % (0-2); EOSINOPHILS 2.4 % (0-7); HEMATOCRIT 41.8 % (36.0-48.0); HEMOGLOBIN 13.1 g/dL (12-16); LYMPHOCYTES 24.7 % (15-50); MCH 28.7 pg (26.0-34.0); MCHC 31.3 g/dL (31.0-37.0); MCV 91.7 fL (80.0-100.0); MEAN PLATELET VOLUME 10.1 fL (7.4-10.4); MONOCYTES 11.6 % (2-11); NEUTROPHILS 60.7 % (40-80); PLATELET COUNT 189 10x3/uL (130-400); RBC 4.56 10x6/uL (4.00-5.40); RDW 15.7 % (11.5-14.5); WBC 4.9 10x3/uL (4.8-10.8)
[2019-09-26 06:38] LABS: CALC OSMOLALITY 290 mosm/kg (275-300); CALCIUM 8.7 mg/dL (8.5-10.1); CARBON DIOXIDE 27.2 mmol/L (21.0-32.0); CHLORIDE - SERUM 104 mmol/L (98-107); CKMB 4.3 U/L (0.0-3.6); CREATINE KINASE 119 UL (21-215); CREATININE - SERUM 1.3 mg/dL (0.6-1.3); GLUCOSE 84 mg/dL (74-106); MAGNESIUM - SERUM 1.9 mg/dL (1.8-2.4); PHOSPHOROUS 4.3 mg/dL (2.5-4.9); POTASSIUM - SERUM 4.3 mmol/L (3.5-5.1); SODIUM 141 mmol/L (136-145); TROPONIN-I 0.033 ng/mL (0.000-0.060); UREA NITROGEN 44 mg/dL (7-18); eGFR NON AFRICAN AMERICAN 41 mL/min (90-120)
[2019-09-26 07:38] VITALS: BP 121/82
--- NOTE | 2019-09-26 10:00 | NUR ---
1000 EKG DC'D PER CARDIOLOGY. AT BEDSIDE.
[2019-09-26 10:46] LABS: CKMB 5.1 U/L (0.0-3.6); CREATINE KINASE 145 UL (21-215); TROPONIN-I 0.037 ng/mL (0.000-0.060)
[2019-09-26 11:18] VITALS: BP 91/55
--- NOTE | 2019-09-26 11:19 | NUR ---
KARENA MOHAN DC'D PER MD ORDER. PT AWAKE, ALERT NO C/O PAIN REQUESTING TO KNOW WHEN SHE MAY GO HOME.
[2019-09-26 11:33] VITALS: BP 106/74
[2019-09-26 14:17] VITALS: Ht 170.2 cm; Wt 94.5 kg
[2019-09-26 15:39] VITALS: BP 105/70
--- NOTE | 2019-09-26 16:05 | NUR ---
CXR RESULTS DISCUSSED WITH HOSPITALIST PT TO DC HOME TODAY
--- NOTE | 2019-09-27 08:04 | EC ---
PATIENT:GERMAN GUIDRY DATE OF SERVICE: 09/25/19 SEX: F MEDICAL RECORD: [id number] DATE OF : 37 LOCATION:D.M2 D.211 AGE OF PATIENT: 84 ADMISSION DATE: 09/25/19 REFERRING PHYSICIAN: INTERPRETING PHYSICIAN: DELVIS BAUTISTA MD ECHOCARDIOGRAM REPORT ECHO CHARGES Date: CLINICAL DIAGNOSIS: ECHOCARDIOGRAPHIC MEASUREMENTS (adult normal given) AC root (d.<3.7cm) cm LV Septum d (<1.2 cm> cm Valve Excursion cm LV Septum (systole) cm Left Atria (s.<4.0cm> cm LVPW d(<1.2cm) cm RV (d.<2.3cm) cm LVPW (sytole) cm LV diastole(<5.6CM) cm MV E-F(>70mm/sec) cm LV systole cm LVOT Diameter cm MV exc.(>10mm) cm Est.ejection fraction (50-75%) % DOPPLER: LVIT cm/sec A cm/sec E cm/sec LA cm/sec RVSP mmHg LVOT cm/sec AOP1/2T m/s Asc. Ao cm/sec RVOT cm/sec RA cm/sec PA cm/sec AV Gradient Peak mmHg AV Mean mmHg AV Area cm MV Gradient Peak mmHg MV Mean mmHg MV Area cm COMMENTS: Automation Analyst: Thermoscrew Operator: HAWK# Pericardial Effusion DATE OF SERVICE: Adequate 2D, color flow imaging, spectral Doppler, and M-Mode. No LVH. LV internal dimensions are normal. Difficult to fully assess focal wall motion from secondary to underlying atrial fibrillation and variable R-R intervals. Overall, LV function lower limits of normal, mildly reduced at 45% to 50%. Aortic valve is sclerosed without stenosis by Doppler interrogation. Left atrium is mildly dilated at 4.3 cm. Mitral valve shows no prolapse. Mild MR. Right-sided chambers are grossly normal. Trace TR. ECHOCARDIOGRAM REPORT [id number] GERMAN GUIDRY TRANSINT:[id number] Voice Confirmation ID: [id number] DOCUMENT ID: [id number] DELVIS BAUTISTA MD at 0804 CC: [id number] DICTATION DATE: 09/25/19 1317 MIDDLEWARE ARCHITECT: 09/25/192002 DIS IN 09/26/19 [address] [place] [address]
--- NOTE | 2019-09-27 08:04 | CN ---
PATIENT NAME:GERMAN GUIDRY MEDICAL RECORD: [id number] : 37 LOCATION:D. D.2113 ADMIT DATE: 09/25/19 ACCOUNT: [id number] CONSULTING PHYSICIAN: DELVIS BAUTISTA MD REFERRING PHYSICIAN: NIKOS DAVID MD DATE OF CONSULTATION: 09/26/2019 HISTORY OF PRESENT ILLNESS: An 84-year-old lady well known to me with a history of coronary artery disease, status post intervention, has a history of atrial fibrillation, failed cardioversion and currently on rate control , on DOAC, admitted with unilateral left arm swelling and pain, was found to be in AFib and RVR. Clinically, she has done quite well with simple rate control at this point, exercising without dyspnea. LV function has been normal in the past. We are asked to see her concerning her cardiovascular status. PAST MEDICAL HISTORY: Includes: 1. History of hypertension. 2. Atrial fibrillation. 3. Dyslipidemia. ALLERGIES: LISINOPRIL, MARISELA COUGH. SOCIAL HISTORY: Nonsmoker, nondrinker. She takes care of all her ADLs. Does have set exercise program. REVIEW OF SYSTEMS: The patient reports easy bruising but reports no swollen glands. The patient reports no fever, no night sweats, no significant weight gain, no significant weight loss. No significant exercise tolerance. The patient reports no dry eyes, no irritation, no vision change. Patient reports no difficulty hearing and no ear pain. Patient reports no frequent nose bleeds or nose and sinus problems. Patient reports on arm pain on exertion. No shortness of breath while lying down. No history of heart murmur. Patient reports no cough, no wheezing or coughing up blood. Patient reports no abdominal pain, no vomiting. Normal appetite. No diarrhea and not vomiting blood. No nausea and no constipation. Patient reports no incontinence. No difficulty urinating. No hematuria. No increased frequency. Patient reports no muscle aches. No weakness, no arthralgias, no back pain. No swelling of the extremities. Patient reports no abnormal mole, no jaundice, no rashes. Reports no loss of consciousness. No weakness and no numbness. No seizures, dizziness, or headaches. The patient reports no depression, no sleep disturbance, feeling safe in a relationship and no alcohol abuse. Patient reports on fatigue. Reports no runny nose or sinus pressure. No itching, no hives, and no frequent sneezing. PHYSICAL EXAMINATION: GENERAL: Pleasant female, in no acute distress, appears stated age. VITAL SIGNS: Blood pressure 121/82, pulse 66 and regular. HEENT: Normocephalic, atraumatic. NECK: No bruits are noted. HEART: Irregular, rate is controlled currently. I-II/ systolic ejection murmur. LUNGS: Good air excursion. ABDOMEN: Soft, nontender. EXTREMITIES: Pulses are well preserved, 2+, no edema. CONSULT REPORT [id number] GERMAN GUIDRY IMPRESSION: Atrial fibrillation. Rates improved on Cardizem drip. Suspect exacerbation may be secondary to current underlying illness. Restart beta blockade, DOAC. No contraindication at discharge from my standpoint. Thank you for the consultation. TRANSINT:[id number] Voice Confirmation ID: [id number] DOCUMENT ID: [id number] DELVIS BAUTISTA MD at 0804 CC: [id number] DICTATION DATE: 09/26/19 0859 FAMILY RESOURCE COORDINATOR: 09/26/19 1209 DIS IN 09/26/19 [facility] [address] [place] [address]
== END 2019-09-26 18:06 | disposition home or self-care (01) | DRG 309 ==
LOC: D.ER 14:32 → D.M2 21:59
PROVIDERS: Family Medicine; ADMIT Internal Medicine Nephrology; ATTEND Internal Medicine Nephrology
DX: I48.91 Unspecified atrial fibrillation (principal); N17.9 Acute kidney failure, unspecified; I10 Essential (primary) hypertension; E78.5 Hyperlipidemia, unspecified